=== PATIENT | male | born 1950 | race Caucasian/White ===

== ENCOUNTER 2021-06-02 16:53 | Emergency (ER) | payer MEDICARE, OTHER, SELFPAY ==
[2021-06-02 16:54] VITALS: BP 136/63; PULSE 72; RESP 16; TEMP 36.3; O2SAT 96; BMI 35.2
--- NOTE | 2021-06-02 17:16 | EKG12_ITS ---
Test Reason : PALPS Blood Pressure : / mmHG Vent. Rate : 077 BPM Atrial Rate : 091 BPM P-R Int : 000 ms QRS Dur : 112 ms QT Int : 378 ms P-R-T Axes : 000 -49 065 degrees QTc Int : 427 ms Atrial fibrillation Left axis deviation Incomplete left bundle branch block Nonspecific ST abnormality Abnormal ECG Confirmed by KERRI HUANG, CRISTAL ([id number]), editor producer LAUREN GARCIA ([id number]) on 06/05/2021 9:55:54 AM Referred By: KATHRIN Confirmed By:ROSE MARY MANNING MD
[2021-06-02 17:32] VITALS: BP 114/74; BP 118/57; BP 125/79; PULSE 68; PULSE 86; PULSE 89
[2021-06-02 17:39] LABS: Absolute Lymphocyte Count 2.62 X10^3/uL (0.83-4.51); Absolute Neutrophil Count 3.1 X10^3/uL (2.0-7.7); Basophil# 0.03 X10^3/uL; Basophil% 0.5 % (0-1); Eosinophil# 0.18 X10^3/uL; Eosinophils% 2.7 % (0-5); Hematocrit 31.3 % (40-54); Hemoglobin 9.2 g/dL (13.0-16.5); Lymphocyte # 2.62 X10^3/ul (0.83-4.51); Lymphocyte % 39.5 % (19-41); Mean Corp Hgb Conc 29.4 g/dL (32-36); Mean Corpuscular Hgb 21.9 pg (27.0-32.0); Mean Corpuscular Volume 74.3 fL (80-94); Mean Platelet Vol. 9.2 fl (6.2-12.0); Monocyte# 0.67 X10^3/uL; Monocyte% 10.1 % (0-10); NRBC Flagged by Analyzer 0 % (0-5); Neutrophil # 3.12 X10^3/uL (2.7-7.7); Neutrophil % 46.9 % (47-70); Platelet Count 427 K/mm3 (150-450); RBC Distribution Width CV 15.7 % (11.6-14.6); RBC Distribution Width SD 41.9 fl (35.1-43.9); Red Blood Count 4.21 M/mm3 (4.6-6.2); White Blood Count 6.6 K/mm3 (4.4-11.0)
--- NOTE | 2021-06-02 17:48 | RAD_ITS ---
INDICATION: cad EXAMINATION/TECHNIQUE: X-RAY - XR Chest 1 View COMPARISON: None. FINDINGS: The lungs are clear. Sternal cerclage wires and vascular clips are present from a prior sternotomy and coronary artery bypass graft procedure (CABG). The heart is enlarged. No pleural effusion or pneumothorax. Degenerative changes of the thoracic spine and shoulders. RAD/Chest 1 View (Portable) IMPRESSION: No acute radiographic abnormalities. Cardiomegaly. Electronically Signed: Silvio Torres MD at 18:28 EDT Tel , Service support ,
[2021-06-02 17:50] LABS: International Normalized Ratio 2.2; Prothrombin Time (Protime)PT. 23.6 SECONDS (11.7-14.9)
[2021-06-02 18:02] LABS: ALB/GLOB Ratio 0.9 RATIO (0.9-2.4); AST(SGOT) 43 U/L (15-37); Alanine Aminotransfer ALT/SGPT 71 U/L (16-61); Albumin, Serum 3.5 g/dL (3.2-5.0); Alkaline Phosphatase 54 U/L (45-117); Anion Gap 11 (5-15); BUN 21 mg/dL (7-18); BUN/Creat Ratio 17.9 RATIO (10-20); Calcium,Total 8.7 mg/dL (8.5-10.1); Chloride 103 mmol/L (98-107); Creatinine, Serum 1.17 mg/dL (0.70-1.30); EST Glomerular Filtration Rate 65 mL/min (>60); Est Glom Filt Rate - Afr Amer 79 mL/min (>60); Estimated Creatinine Clearance 60.66 ml/min; Globulin 3.8 g/dL (2.2-4.2); Glucose 145 mg/dL (74-106); Protein, Total 7.3 g/dL (6.4-8.2); Sodium Level 137 mmol/L (136-145); Troponin-I HS 35.1 pg/mL (3.0-78.5)
[2021-06-02 18:44] LABS: BNP,B-Type NATRIURETIC PEPTIDE 106.6 pg/mL (0-100)
[2021-06-02 19:17] VITALS: BP 115/66; PULSE 62; RESP 16; O2SAT 100
[2021-06-02 20:05] LABS: Bacteria 0 SEEN /hpf (None Seen); Mucous, Urine 0 SEEN /hpf (<or=2+); Red Blood Cells-Urine 0 SEEN /hpf (0-5); Squamous Epithelial Cells - UA 0 SEEN /hpf (0-5)
[2021-06-02 20:09] LABS: Color, Urine Yellow (Yellow); Glucose, Dipstick Normal (Normal); Ketone-Dipstick Negative (Negative); Leukocyte Esterase-Dipstick 25 /ul (Negative); Nitrite-Dipstick Negative (Negative); Occult Blood-Urine Negative /ul (Negative); Protein-Dipstick Negative (Negative); Urine Bilirubin Dipstick Negative (Negative); Urine Clarity Clear (Clear); Urine Urobilinogen Normal (Normal)
[2021-06-02 20:23] LABS: White Blood Cells 0-5 SEEN /hpf (0-5)
[2021-06-02 20:35] VITALS: BP 128/56; PULSE 63; RESP 18; O2SAT 98
--- NOTE | 2021-06-02 21:06 | EDS_ITS ---
HPI History of Present Illness Chief Complaint: Palpitations Informant: patient and spouse/S.O. Narrative Narrative: 70-year-old male presenting to the emergency department stating that he does not feel well. States that he feels out of it. He recently moved into the area from [place]. Unfortunately he had been getting his medical care at [facility]. He notes a history of atrial fibrillation. He takes Toprol Plavix and Coumadin. He is also on lisinopril Imdur and Lasix. He has had open heart surgery. He has had prior coronary stents. He does note a history of congestive heart failure. [facility] Medical History (Updated 06/02/21 @ 21:[address] Evan Deleon, DO) Atrial fibrillation Congestive heart failure (CHF) Hyperlipidemia Hypertension Home Medications clopidogrel 75 mg PO DAILY 06/02/21 [History Last Taken 06/02/21] famotidine 40 mg PO DAILY 06/02/21 [History Last Taken 06/02/21] folic acid 0.8 mg PO BID 06/02/21 [History Last Taken 06/02/21] furosemide [Lasix] 40 mg PO DAILY 06/02/21 [History Last Taken 06/02/21] isosorbide mononitrate [Imdur] 60 mg PO DAILY 06/02/21 [History Last Taken 06/02/21] lisinopril 20 mg PO DAILY 06/02/21 [History Last Taken 06/02/21] metformin 1,000 mg PO BID 06/02/21 [History Last Taken 06/02/21] metoprolol succinate [Toprol XL] 100 mg PO Q12H 06/02/21 [History Last Taken 06/02/21] multivitamin 1 tab PO DAILY 06/02/21 [History Last Taken 06/02/21] nitroglycerin [Nitrostat] 0.4 mg SUBLINGUAL Q5M PRN 06/02/21 [History Last Taken Unknown] potassium chloride [Klor-Con] 20 meq PO DAILY 06/02/21 [History Last Taken 06/02/21] pravastatin 80 mg PO QHS 06/02/21 [History Last Taken 06/01/21] sitagliptin [Januvia] 50 mg PO DAILY 06/02/21 [History Last Taken 06/02/21] warfarin [Coumadin] 6 mg PO SUTUWETHSA 06/02/21 [History Last Taken 06/01/21] warfarin [Coumadin] 7 mg PO MOFR 06/02/21 [History Last Taken 05/29/21] Allergy/AdvReac Type Severity Reaction Status Date / Time amoxicillin Allergy Hives Verified 06/02/21 16:59 atorvastatin Allergy NEEDS Verified 06/02/21 16:59 FOLLOW-UP ceftriaxone Allergy Upset Verified 06/02/21 16:59 Stomach diatrizoate meglumine Allergy Hives Verified 06/02/21 16:59 hydrocodone Allergy Upset Verified 06/02/21 16:59 Stomach Iodinated Contrast Media [CT] Allergy Hives Verified 06/02/21 16:59 iodine Allergy Hives Verified 06/02/21 16:59 rosuvastatin Allergy NEEDS Verified 06/02/21 16:59 FOLLOW-UP Surgical History (Updated 06/02/21 @ 21:[address] Evan Deleon DO) Hx of CABG Stented coronary artery Social History (Updated 06/02/21 @ 21:[address] Evan Deleon DO) Smoking Status: Former smoker substance use type: does not use ROS ROS ED Constitutional Constitutional ED: Reports other Details: Fatigue ; Denies chills or weight loss Eyes Eyes: Denies change in vision or diplopia ENT ENT ED: Denies ear pain, rhinorrhea or sore throat Cardiovascular Cardiovascular: Reports palpitations; Denies chest pain, orthopnea or racing heartbeat Respiratory/Chest Respiratory/Chest: Denies cough, dyspnea or orthopnea Gastrointestinal Gastrointestinal: Denies abdominal pain, diarrhea, nausea or vomiting Genitourinary Genitourinary ED: Denies dysuria, hematuria or urinary frequency Musculoskeletal Musculoskeletal: Denies arthralgias or myalgias Integumentary Denies abscess or rash Neurologic Neurologic: Denies headache(s) or weakness Psychiatric Psychiatric: Denies anxiety, depression, suicidal ideation or suicidal thoughts Endocrine Endocrinology: Denies polydipsia, polyphagia or polyuria Allergic/Immunologic Allergic/Immunologic ED: Denies mouth swelling, tongue swelling or urticaria EXAM Physical Exam Const Vital Signs: 06/02/21 16:54 06/02/21 17:32 06/02/21 19:17 Temperature 97.3 F L Temperature Source Temporal Pulse Rate 72 62 Pulse Rate [Lying] 68 Pulse Rate [Sitting] 86 Pulse Rate [Standing] 89 Respiratory Rate 16 16 Blood Pressure 136/63 H 115/66 Blood Pressure [Lying] 118/57 L Blood Pressure [Sitting] 125/79 H Blood Pressure [Standing] 114/74 Blood Pressure Mean 87 82 Blood Pressure Mean [Lying] 77 Blood Pressure Mean [Sitting] 94 Blood Pressure Mean [Standing] 87 Pulse Ox 96 100 Oxygen Delivery Method Room Air Room Air 06/02/21 20:35 Temperature Temperature Source Pulse Rate 63 Pulse Rate [Lying] Pulse Rate [Sitting] Pulse Rate [Standing] Respiratory Rate 18 Blood Pressure 128/56 H Blood Pressure [Lying] Blood Pressure [Sitting] Blood Pressure [Standing] Blood Pressure Mean 80 Blood Pressure Mean [Lying] Blood Pressure Mean [Sitting] Blood Pressure Mean [Standing] Pulse Ox 98 Oxygen Delivery Method Positive well nourished and well developed General Appearance ED: well developed HEENT Reports normocephalic, head/scalp atraumatic and moist mucous membranes Eyes PERRL and EOMs intact bilaterally Neck no lymphadenopathy, supple and no JVD Resp normal respiratory effort and clear to auscultation bilaterally Cardio no murmurs Rate: other Other Details: Irregularly irregular rhythm GI normal to inspection, nondistended, normoactive bowel sounds and non-tender Palpation: soft Back/Spine no CVA tenderness and normal ROM Extremity normal to inspection General Extremety ED: Negative for edema General Extremity: Negative for edema Neuro oriented x3 and CN's II-XII intact bilaterally Sensorium / Orientation: alert Motor Exam: strength 5/5 throughout Psych mental status grossly normal Mood & Affect: Negative for depressed or tearful Skin no rashes or lesions noted and no wounds MDM MDM MDM Narrative Medical decision making narrative: Basic blood work showed a hemoglobin 9.2. Unfortunately I do not have old labs to compare to and I cannot get clinic [facility] to provide me records from [facility]. 2 sets of cardiac enzymes negative. Beta natruretic peptide at 106. I interpretation of the chest x-ray is no acute process. Cardiomegaly noted. Patient received a 500 cc fluid bolus and was observed. Repeat examination he tells me that he is no longer having his symptoms and he feels well. At this point he has no evidence of bleeding no black or bloody stools. I think the patient can be discharged home he is looking for new doctors in the area can provide him with some options. Lab Data Attestation: I reviewed the patient's lab results. Labs: Laboratory Results - last 24 hr 06/02/21 06/02/21 06/02/21 17:25 17:25 17:25 WBC 6.6 RBC 4.21 L Hgb 9.2 L Hct 31.3 L MCV 74.3 L MCH 21.9 L MCHC 29.4 L RDW Std Deviation 41.9 RDW Coeff of Otto 15.7 H Plt Count 427 MPV 9.2 Immature Gran % (Auto) 0.300 Neut % (Auto) 46.9 L Lymph % (Auto) 39.5 [place] % (Auto) 10.1 H Eos % (Auto) 2.7 Baso % (Auto) 0.5 Absolute Neuts (auto) 3.1 Absolute Lymphs (auto) 2.62 Nucleated RBC % 0 PT INR Sodium 137 Potassium 4.0 Chloride 103 Carbon Dioxide 23.0 Anion Gap 11 BUN 21 H Creatinine 1.17 Estim Creat Clear Calc 60.66 Est GFR (MDRD) Af Amer 79 Est GFR (MDRD) Non-Af 65 BUN/Creatinine Ratio 17.9 Glucose 145 H Calcium 8.7 Total Bilirubin 0.30 AST 43 H ALT 71 H Alkaline Phosphatase 54 Troponin I High Sens 35.1 B-Natriuretic Peptide 106.6 H Total Protein 7.3 Albumin 3.5 Globulin 3.8 Albumin/Globulin Ratio 0.9 Urine Color Urine Clarity Urine pH Ur Specific [place] Urine Protein Urine Glucose (UA) Urine Ketones Urine Occult Blood Urine Nitrite Urine Bilirubin Urine Urobilinogen Ur Leukocyte Esterase Urine RBC Urine WBC Ur Squamous Epith Cells Urine Bacteria Urine Mucus 06/02/21 06/02/21 06/02/21 17:25 20:00 20:42 WBC RBC Hgb Hct MCV MCH MCHC RDW Std Deviation RDW Coeff of Otto Plt Count MPV Immature Gran % (Auto) Neut % (Auto) Lymph % (Auto) [place] % (Auto) Eos % (Auto) Baso % (Auto) Absolute Neuts (auto) Absolute Lymphs (auto) Nucleated RBC % PT 23.6 H INR 2.2 Sodium Potassium Chloride Carbon Dioxide Anion Gap BUN Creatinine Estim Creat Clear Calc Est GFR (MDRD) Af Amer Est GFR (MDRD) Non-Af BUN/Creatinine Ratio Glucose Calcium Total Bilirubin AST ALT Alkaline Phosphatase Troponin I High Sens 29.8 B-Natriuretic Peptide Total Protein Albumin Globulin Albumin/Globulin Ratio Urine Color Yellow Urine Clarity Clear Urine pH 6.0 Ur Specific [place] 1.020 Urine Protein Negative Urine Glucose (UA) Normal Urine Ketones Negative Urine Occult Blood Negative Urine Nitrite Negative Urine Bilirubin Negative Urine Urobilinogen Normal Ur Leukocyte Esterase 25 H Urine RBC 0 SEEN Urine WBC 0-5 SEEN Ur Squamous Epith Cells 0 SEEN Urine Bacteria 0 SEEN Urine Mucus 0 SEEN Radiography Diagnostic Testing: Radiology Impression Chest X-Ray 06/02/21 17:48 IMPRESSION: No acute radiographic abnormalities. Cardiomegaly. Electronically Signed: Silvio Torres MD at 18:28 EDT Tel , Service support , EKG Initial EKG: Attestation: I personally reviewed and interpreted this EKG as follows: Comments: EKG demonstrates atrial fibrillation at a ventricular rate of 77 bpm. Incomplete left bundle branch block noted. Discharge Plan Triage Chief Complaint: Palpitations ED Provider: Evan Deleon Dx/Rx/DC Orders Clinical Impression: Dizziness, Fatigue, Coronary artery disease, Anemia Instructions: ED Anemia, Type Not Specified (Adult), ED Dizziness, Uncertain Cause Prescriptions: No Action multivitamin Tablet 1 tab PO DAILY RF: 0 furosemide [Lasix] 40 mg Tablet 40 mg PO DAILY RF: 0 lisinopril 20 mg Tablet 20 mg PO DAILY RF: 0 famotidine 40 mg Tablet 40 mg PO DAILY RF: 0 metoprolol succinate [Toprol XL] 100 mg Tablet Extended Release 24 Hr 100 mg PO Q12H RF: 0 clopidogrel 75 mg Tablet 75 mg PO DAILY RF: 0 isosorbide mononitrate [Imdur] 60 mg Tablet Extended Release 24 Hr 60 mg PO DAILY RF: 0 potassium chloride [Klor-Con] 20 mEq Packet 20 meq PO DAILY RF: 0 pravastatin 80 mg Tablet 80 mg PO QHS RF: 0 metformin 1,000 mg Tablet 1,000 mg PO BID RF: 0 warfarin [Coumadin] 2 mg Tablet 7 mg PO MOFR RF: 0 warfarin [Coumadin] 2 mg Tablet 6 mg PO SUTUWETHSA RF: 0 nitroglycerin [Nitrostat] 0.4 mg Tablet, Sublingual 0.4 mg SUBLINGUAL Q5M PRN (Reason: Chest Pain) RF: 0 folic acid 800 mcg Tablet 0.8 mg PO BID RF: 0 Januvia 50 mg Tablet 50 mg PO DAILY RF: 0 Primary Care Provider: Care Physician,No Primary Referrals: Sergei Riddle MD [STAFF PHYSICIAN] - As Needed (For primary care with [facility]) Alicia Allison MD [STAFF PHYSICIAN] - As Needed (For [facility]) Mario Edmond MD [STAFF PHYSICIAN] - As Needed (Dr. Edmond is a local horseradish maker.) Care Physician,No Primary [Primary Care Provider] - Disposition Disposition: Home, Self Care
[2021-06-02 21:10] LABS: Troponin-I HS 29.8 pg/mL (3.0-78.5)
[2021-06-02 21:28] VITALS: BP 114/59; PULSE 66; RESP 12; O2SAT 100
== END 2021-06-02 21:41 | disposition home or self-care (01) ==
PROVIDERS: Emergency Provider Emergency Medicine
DX: R42 Dizziness and giddiness (principal); R53.83 Other fatigue; I25.10 Atherosclerotic heart disease of native coronary artery without angina pectoris; D64.9 Anemia, unspecified; E78.5 Hyperlipidemia, unspecified; I11.0 Hypertensive heart disease with heart failure; I50.9 Heart failure, unspecified; I48.91 Unspecified atrial fibrillation; Z79.01 Long term (current) use of anticoagulants; Z79.84 Long term (current) use of oral hypoglycemic drugs; Z79.899 Other long term (current) drug therapy; Z87.891 Personal history of nicotine dependence; Z95.5 Presence of coronary angioplasty implant and graft
CPT/HCPCS: 71045; 80053; 81001; 83880; 84484; 85025; 85610; 93005; 96360; 96361; 99285; J7040; A4216

== ENCOUNTER 2021-06-19 14:55 | Inpatient (IN) | payer MEDICARE, OTHER, SELFPAY ==
[2021-06-19] VITALS (9 sets, daily range): BP systolic 111–146; BP diastolic 53–71; PULSE 63–94; RESP 15–24; TEMP 36.3–36.7; O2SAT 97–100; BMI 35.2
--- NOTE | 2021-06-19 15:16 | CT_ITS ---
EXAM: CT ABDOMEN AND PELVIS WITHOUT INTRAVENOUS CONTRAST : 1950 CLINICAL INDICATION: flank pain TECHNIQUE: Helically acquired images were obtained of the abdomen and pelvis without intravenous contrast. This CT exam was performed using one or more of the following dose reduction techniques: automated exposure control, adjustment of the mA and/or kV according to patient size, and/or use of iterative reconstruction technique. This report was created using [email or web address] report generation technology. COMPARISON: None. FINDINGS: LOWER THORAX: Unremarkable. Lung bases are clear. No cardiomegaly. No significant pericardial effusion. ABDOMEN: LIVER: Unremarkable. Homogeneous. GALLBLADDER AND BILE DUCTS: Unremarkable. No calcified gallstones. No gallbladder distention or wall edema. No intra- or extrahepatic biliary ductal dilation. PANCREAS: Unremarkable. No focal cystic mass. SPLEEN: Unremarkable. Normal size without focal cystic or solid mass. ADRENALS: Unremarkable. No nodules. KIDNEYS AND URETERS: Unremarkable. Normal renal size and position. No hydronephrosis. STOMACH AND BOWEL: Unremarkable. No stomach or bowel distention. No focal inflammatory change. PELVIS: APPENDIX: No evidence of acute appendicitis. BLADDER: Unremarkable. REPRODUCTIVE: Unremarkable as visualized. No mass. ABDOMEN and PELVIS: INTRAPERITONEAL SPACE: Unremarkable. No ascites or other fluid collection. No free air. BONES/JOINTS: Unremarkable. No suspicious lytic or blastic abnormality. SOFT TISSUES: Unremarkable. No discrete abdominal or pelvic wall hernia. VASCULATURE: Unremarkable. Abdominal aorta is non-dilated. LYMPH NODES: Unremarkable. No enlarged lymph nodes. CT/Abdomen/Pelvis without Cont IMPRESSION: Negative CT of the abdomen and pelvis without intravenous contrast. Individualized dose optimization techniques were used for this CT. at 1652 Reported and signed by: Amado Ren MD Electronically Signed: Amado Ren MD at 16:51 EDT Tel , Service support ,
--- NOTE | 2021-06-19 15:16 | EKG12_ITS ---
Test Reason : DIZZINESS Blood Pressure : / mmHG Vent. Rate : 075 BPM Atrial Rate : 075 BPM P-R Int : 248 ms QRS Dur : 102 ms QT Int : 372 ms P-R-T Axes : 046 -39 041 degrees QTc Int : 415 ms Sinus rhythm with 1st degree A-V block Left axis deviation Poor R wave progression Abnormal ECG Confirmed by SWATI HUANG, FADIA ([id number]), video tape editor LAUREN GARCIA ([id number]) on 06/22/2021 12:47:40 PM Referred By: SHIVANI Confirmed By:FADIA LONGORIA MD
--- NOTE | 2021-06-19 15:19 | EX.ED.DYSGE1 ---
HPI History of Present Illness Chief Complaint: Dizziness Narrative Narrative: Patient presents with 2 to 3-month history of feeling dizzy, he describes this as lightheaded, he has abdominal pain, and decreased p.o. intake, his stool has also been quite erratic recently. No weight loss. No fevers or chills. He did notice some bright red blood per rectum today. No vertigo or neurological symptoms. [facility] Medical History (Updated 06/19/21 @ 18:[address] Mario aYng MD) Atrial fibrillation Congestive heart failure (CHF) Diabetes Hyperlipidemia Hypertension Home Medications clopidogrel 75 mg PO DAILY 06/02/21 [History Last Taken 06/02/21] famotidine 40 mg PO DAILY 06/02/21 [History Last Taken 06/02/21] folic acid 0.8 mg PO BID 06/02/21 [History Last Taken 06/02/21] furosemide [Lasix] 40 mg PO DAILY 06/02/21 [History Last Taken 06/02/21] isosorbide mononitrate [Imdur] 60 mg PO DAILY 06/02/21 [History Last Taken 06/02/21] lisinopril 20 mg PO DAILY 06/02/21 [History Last Taken 06/02/21] metformin 1,000 mg PO BID 06/02/21 [History Last Taken 06/02/21] metoprolol succinate [Toprol XL] 100 mg PO Q12H 06/02/21 [History Last Taken 06/02/21] multivitamin 1 tab PO DAILY 06/02/21 [History Last Taken 06/02/21] nitroglycerin [Nitrostat] 0.4 mg SUBLINGUAL Q5M PRN 06/02/21 [History Last Taken Unknown] potassium chloride [Klor-Con] 20 meq PO DAILY 06/02/21 [History Last Taken 06/02/21] pravastatin 80 mg PO QHS 06/02/21 [History Last Taken 06/01/21] sitagliptin [Januvia] 50 mg PO DAILY 06/02/21 [History Last Taken 06/02/21] warfarin [Coumadin] 6 mg PO SUTUWETHSA 06/02/21 [History Last Taken 06/01/21] warfarin [Coumadin] 7 mg PO MOFR 06/02/21 [History Last Taken 05/29/21] Allergy/AdvReac Type Severity Reaction Status Date / Time amoxicillin Allergy Hives Verified 06/19/21 14:56 atorvastatin Allergy NEEDS Verified 06/19/21 14:56 FOLLOW-UP ceftriaxone Allergy Upset Verified 06/19/21 14:56 Stomach diatrizoate meglumine Allergy Hives Verified 06/19/21 14:56 hydrocodone Allergy Upset Verified 06/19/21 14:56 Stomach Iodinated Contrast Media [CT] Allergy Hives Verified 06/19/21 14:56 iodine Allergy Hives Verified 06/19/21 14:56 rosuvastatin Allergy NEEDS Verified 06/19/21 14:56 FOLLOW-UP Surgical History Hx of CABG Stented coronary artery Social History (Updated 06/02/21 @ 21:[address] Evan Deleon, DO) Smoking Status: Former smoker substance use type: does not use ROS ROS ED ROS Narrative Past medical history: Reviewed, includes history of coronary artery disease, anemia, atrial fibrillation, diabetes, hypercholesterolemia, hypertension. Medications: Reviewed Social history: Noncontributory Review of systems: All systems negative except as indicated General: No fever, there is lightheadedness and generalized weakness Eyes: No visual changes ENT: No upper airway congestion, normal voice Neck: No neck pain Cardiovascular: No chest pain Respiratory: No shortness of breath or cough Gastrointestinal: Some left lower abdominal pain, some rectal bleeding this morning Genitourinary: No dysuria Musculoskeletal: Denies myalgias no difficulty with ambulation Skin: No rash Neurological: No memory loss, confusion or any focal weakness Psych: No recent behavioral changes Hematologic: Prone to easy bleeding secondary to both Coumadin and Plavix EXAM Physical Exam Narrative Exam Narrative: Physical exam General: Patient does not appear in significant distress he is relatively comfortable in the bed. Head: Normocephalic, Atraumatic Eyes: Conjunctiva not pale ENT: Somewhat dry mucous membranes Neck: Supple, Nontender, No lymphadenopathy Cardiovascular: Regular rate, Regular rhythm Respiratory: No distress, CTA bilaterally Abdomen: Soft, slightly distended some pain in the left lower quadrant but otherwise no pain, quite benign exam. A small umbilical hernia is present which is quite easily reduced. Rectal: No external hemorrhoids, no current bleeding. Back: Nontender, Normal Inspection. Negative for: CVA tenderness Extremities: Nontender, No edema Skin: Normal color, No rash Neurological: Alert, Normal Strength, Normal Sensation Psychological: Normal affect Const Vital Signs: 06/19/21 14:56 06/19/21 18:00 Temperature 97.7 F L Temperature Source Oral Pulse Rate 76 69 Respiratory Rate 18 24 H Blood Pressure 120/61 124/53 H Blood Pressure Mean 80 76 Pulse Ox 100 70 Oxygen Delivery Method Room Air Room Air MDM MDM MDM Narrative Medical decision making narrative: Patient presents with lightheadedness. He does have a GI bleed. He has an overall unremarkable work-up other than mild anemia which is only slightly worse than baseline. I give him IV fluids is somewhat improved but I will admit him for further work-up. Lab Data Labs: Laboratory Results - last 24 hr 06/19/21 06/19/21 06/19/21 15:25 15:25 15:25 WBC 8.1 RBC 4.04 L Hgb 8.5 L Hct 30.1 L MCV 74.5 L MCH 21.0 L MCHC 28.2 L RDW Std Deviation 43.5 RDW Coeff of Otto 16.0 H Plt Count 388 MPV 8.8 Immature Gran % (Auto) 0.400 Neut % (Auto) 55.7 Lymph % (Auto) 31.5 [place] % (Auto) 8.9 Eos % (Auto) 3.1 Baso % (Auto) 0.4 Absolute Neuts (auto) 4.5 Absolute Lymphs (auto) 2.54 Nucleated RBC % 0 PT 25.1 H INR 2.4 APTT 34.6 Sodium 135 L Potassium 3.8 Chloride 104 Carbon Dioxide 24.0 Anion Gap 7 BUN 13 Creatinine 1.07 Estim Creat Clear Calc 65.38 Est GFR (MDRD) Af Amer 88 Est GFR (MDRD) Non-Af 72 BUN/Creatinine Ratio 12.1 Glucose 159 H Lactic Acid Calcium 8.4 L Total Bilirubin 0.20 AST 66 H ALT 73 H Alkaline Phosphatase 55 Troponin I High Sens 6.7 Total Protein 7.5 Albumin 3.4 Globulin 4.1 Albumin/Globulin Ratio 0.8 L Lipase 310 06/19/21 15:25 WBC RBC Hgb Hct MCV MCH MCHC RDW Std Deviation RDW Coeff of Otto Plt Count MPV Immature Gran % (Auto) Neut % (Auto) Lymph % (Auto) [place] % (Auto) Eos % (Auto) Baso % (Auto) Absolute Neuts (auto) Absolute Lymphs (auto) Nucleated RBC % PT INR APTT Sodium Potassium Chloride Carbon Dioxide Anion Gap BUN Creatinine Estim Creat Clear Calc Est GFR (MDRD) Af Amer Est GFR (MDRD) Non-Af BUN/Creatinine Ratio Glucose Lactic Acid 3.2 H* Calcium Total Bilirubin AST ALT Alkaline Phosphatase Troponin I High Sens Total Protein Albumin Globulin Albumin/Globulin Ratio Lipase Radiography Diagnostic Testing: Radiology Impression Abdomen/Pelvis CT 06/19/21 15:16 IMPRESSION: Negative CT of the abdomen and pelvis without intravenous contrast. Individualized dose optimization techniques were used for this CT. at 1652 Reported and signed by: Amado Ren MD Electronically Signed: Amado Ren MD at 16:51 EDT Tel , Service support , Discharge Plan Triage Chief Complaint: Dizziness ED Provider: Mario Yang Dx/Rx/DC Orders Clinical Impression: Dizziness, Fatigue, Anemia, Acute GI bleeding Prescriptions: No Action multivitamin Tablet 1 tab PO DAILY RF: 0 furosemide [Lasix] 40 mg Tablet 40 mg PO DAILY RF: 0 lisinopril 20 mg Tablet 20 mg PO DAILY RF: 0 famotidine 40 mg Tablet 40 mg PO DAILY RF: 0 metoprolol succinate [Toprol XL] 100 mg Tablet Extended Release 24 Hr 100 mg PO Q12H RF: 0 clopidogrel 75 mg Tablet 75 mg PO DAILY RF: 0 isosorbide mononitrate [Imdur] 60 mg Tablet Extended Release 24 Hr 60 mg PO DAILY RF: 0 potassium chloride [Klor-Con] 20 mEq Packet 20 meq PO DAILY RF: 0 pravastatin 80 mg Tablet 80 mg PO QHS RF: 0 metformin 1,000 mg Tablet 1,000 mg PO BID RF: 0 warfarin [Coumadin] 2 mg Tablet 7 mg PO MOFR RF: 0 warfarin [Coumadin] 2 mg Tablet 6 mg PO SUTUWETHSA RF: 0 nitroglycerin [Nitrostat] 0.4 mg Tablet, Sublingual 0.4 mg SUBLINGUAL Q5M PRN (Reason: Chest Pain) RF: 0 folic acid 800 mcg Tablet 0.8 mg PO BID RF: 0 Januvia 50 mg Tablet 50 mg PO DAILY RF: 0 Primary Care Provider: Oscar Castro Referrals: Oscar Castro MD [Primary Care Provider] - Disposition Disposition: Acute Care Hospital [facility]
[2021-06-19] MEDS: Ondansetron 4 MG/2 ML Vial IV (15:29)
[2021-06-19] MEDS: Morphine 2 MG/ML Syringe IV (15:29)
[2021-06-19 15:37] LABS: Absolute Lymphocyte Count 2.54 X10^3/uL (0.83-4.51); Absolute Neutrophil Count 4.5 X10^3/uL (2.0-7.7); Basophil# 0.03 X10^3/uL; Basophil% 0.4 % (0-1); Eosinophil# 0.25 X10^3/uL; Eosinophils% 3.1 % (0-5); Hematocrit 30.1 % (40-54); Hemoglobin 8.5 g/dL (13.0-16.5); Lymphocyte # 2.54 X10^3/ul (0.83-4.51); Lymphocyte % 31.5 % (19-41); Mean Corp Hgb Conc 28.2 g/dL (32-36); Mean Corpuscular Volume 74.5 fL (80-94); Mean Platelet Vol. 8.8 fl (6.2-12.0); Monocyte# 0.72 X10^3/uL; Monocyte% 8.9 % (0-10); NRBC Flagged by Analyzer 0 % (0-5); Neutrophil # 4.49 X10^3/uL (2.7-7.7); Neutrophil % 55.7 % (47-70); Platelet Count 388 K/mm3 (150-450); RBC Distribution Width SD 43.5 fl (35.1-43.9); Red Blood Count 4.04 M/mm3 (4.6-6.2); White Blood Count 8.1 K/mm3 (4.4-11.0)
[2021-06-19 15:53] LABS: ALB/GLOB Ratio 0.8 RATIO (0.9-2.4); AST(SGOT) 66 U/L (15-37); Alanine Aminotransfer ALT/SGPT 73 U/L (16-61); Albumin, Serum 3.4 g/dL (3.2-5.0); Alkaline Phosphatase 55 U/L (45-117); Anion Gap 7 (5-15); BUN 13 mg/dL (7-18); BUN/Creat Ratio 12.1 RATIO (10-20); Calcium,Total 8.4 mg/dL (8.5-10.1); Chloride 104 mmol/L (98-107); Creatinine, Serum 1.07 mg/dL (0.70-1.30); EST Glomerular Filtration Rate 72 mL/min (>60); Est Glom Filt Rate - Afr Amer 88 mL/min (>60); Estimated Creatinine Clearance 65.38 ml/min; Globulin 4.1 g/dL (2.2-4.2); Glucose 159 mg/dL (74-106); Lipase 310 U/L (73-393); Potassium 3.8 mmol/L (3.5-5.1); Protein, Total 7.5 g/dL (6.4-8.2); Sodium Level 135 mmol/L (136-145); Troponin-I HS 6.7 pg/mL (3.0-78.5)
[2021-06-19 15:55] LABS: International Normalized Ratio 2.4; Prothrombin Time (Protime)PT. 25.1 SECONDS (11.7-14.9)
[2021-06-19 15:56] LABS: Partial Thromboplast Time 34.6 Seconds (24.1-36.2)
[2021-06-19 16:02] LABS: Lactic Acid 3.2 mmol/L (0.4-1.9)
--- NOTE | 2021-06-19 18:06 | NURSING ---
DR TREVINO IN ER
--- NOTE | 2021-06-19 18:25 | CT_ITS ---
STUDY: CT ABDOMEN AND PELVIS WITHOUT CONTRAST REASON FOR EXAM: Male, 71 years old. Left lower quadrant abd pain -- Left lower quadrant abd pain, Lower GI BLeed RADIATION DOSAGE (If Supplied By Facility): CTDIvol = ( 18.48 ) mGy, DLP = ( 960.33 ) mGycm TECHNIQUE: Transaxial images were obtained from the dome of the diaphragm to the symphysis pubis with oral contrast, and without intravenous contrast. Sagittal and coronal images were reconstructed. Individualized dose optimization techniques were used for this CT. COMPARISON: None. FINDINGS: The visualized lung bases are unremarkable. The visualized portions of the heart are within normal limits. Normal liver. Normal gallbladder and extrahepatic biliary system. Normal spleen. Normal pancreas. Normal bilateral adrenal glands. Normal right kidney. Normal left kidney. Normal visualized stomach. Normal small intestine. There are multiple colonic diverticula consistent with diverticulosis. The appendix is visualized and appears normal. Normal abdominal aorta. There is an IVC filter in place. Normal retroperitoneum. Normal urinary bladder. Normal visualized prostate gland. Bilateral fat-containing inguinal hernias. There are diffuse degenerative changes of the visualized lumbar spine. CT/Abdomen/Pel W ORAL Cont Only IMPRESSION: No acute findings. Chronic diverticulosis without acute diverticulitis. Electronically Signed: Jose Landis DO at 23:31 EDT Tel , Service support ,
--- NOTE | 2021-06-19 18:37 | PCM.HP.STD ---
HPI - General HPI Narrative BASILIA CONKLIN, is a 71 M with history of multiple cardiac history came to ED with dizziness for about 3 to 4 months sometimes he feels off balance, near fall situation. He denies passing out. He has dyspnea on exertion probably related to coronary artery disease, CHF and other cardiac history. He also complains of claudication pain on climbing stairs but that is chronic for long time. He also noticed bright red blood today but does not know about darker stool as he does not watch his stool. No vertigo, weakness, loss of sensation or other TIA or stroke symptoms. Patient follows [facility] Dr. Van Faye and he has history of quadruple bypass in 2002 and several stents with 1 restenosis of his stent and on Plavix. He also has paroxysmal A. fib on Coumadin, CHF of unclear type and etiology. Patient is new to our system. He denies chest pain/pressure or shortness of breath or palpitation. In the ER, his vitals were normal range. H&H 8.5/30 with normal leukocyte, normal electrolytes. Kidney function normal range. Lipase normal. Lactic acid 3.2, probably related to GI bleed/abdominal pain/dehydration. [facility] Medical History Atrial fibrillation Congestive heart failure (CHF) Diabetes Hyperlipidemia Hypertension Home Medications clopidogrel 75 mg PO DAILY 06/02/21 [History Last Taken 06/19/21] famotidine 40 mg PO DAILY 06/02/21 [History Last Taken 06/19/21] folic acid 0.8 mg PO BID 06/02/21 [History Last Taken 06/19/21] furosemide [Lasix] 40 mg PO DAILY 06/02/21 [History Last Taken 06/19/21] isosorbide mononitrate [Imdur] 60 mg PO DAILY 06/02/21 [History Last Taken 06/19/21] lisinopril 20 mg PO DAILY 06/02/21 [History Last Taken 06/19/21] metformin 1,000 mg PO BID 06/02/21 [History Last Taken 06/19/21] metoprolol succinate [Toprol XL] 100 mg PO Q12H 06/02/21 [History Last Taken 06/19/21] multivitamin 1 tab PO DAILY 06/02/21 [History Last Taken 06/19/21] nitroglycerin [Nitrostat] 0.4 mg SUBLINGUAL Q5M PRN 06/02/21 [History Last Taken Unknown] potassium chloride [Klor-Con] 20 meq PO DAILY 06/02/21 [History Last Taken 06/19/21] pravastatin 80 mg PO QHS 06/02/21 [History Last Taken 06/18/21] sitagliptin [Januvia] 50 mg PO DAILY 06/02/21 [History Last Taken 06/19/21] warfarin [Coumadin] 6 mg PO SUTUWETHSA 06/02/21 [History Last Taken 06/18/21] warfarin [Coumadin] 7 mg PO MOFR 06/02/21 [History Last Taken 06/16/21] cilostazol 50 mg PO BID 06/19/21 [History Last Taken 06/19/21] Allergy/AdvReac Type Severity Reaction Status Date / Time amoxicillin Allergy Hives Verified 06/19/21 14:56 atorvastatin Allergy NEEDS Verified 06/19/21 14:56 FOLLOW-UP ceftriaxone Allergy Upset Verified 06/19/21 14:56 Stomach diatrizoate meglumine Allergy Hives Verified 06/19/21 14:56 hydrocodone Allergy Upset Verified 06/19/21 14:56 Stomach Iodinated Contrast Media [CT] Allergy Hives Verified 06/19/21 14:56 iodine Allergy Hives Verified 06/19/21 14:56 rosuvastatin Allergy NEEDS Verified 06/19/21 14:56 FOLLOW-UP Family History (Updated 06/19/21 @ 18:[address] Austyn Echevarria MD) Father CAD (coronary artery disease) Mother CAD (coronary artery disease) Surgical History Hx of CABG Stented coronary artery Social History Smoking Status: Former smoker substance use type: does not use ROS ROS Narrative Constitutional: Reports fatigue and weakness. Dizziness HEENT: Reports systems reviewed and no addt'l complaints, except as documented Respiratory/Chest: Denies chest pain/pressure. Chronic dyspnea on exertion. Chronic claudication pain history Gastrointestinal: As mentioned in HPI Genitourinary: Denies burning urination or new urinary tract symptoms Musculoskeletal: Reports joint pain and limited range of motion Neurologic: Denies seizure-like activity skin: Grayish discoloration of lower legs sensitive of varicose vein/venous hypertension Endocrinology: Reports systems reviewed and no addt'l complaints, except as documented Hematologic/Lymphatic: Reports systems reviewed and no addt'l complaints, except as documented Rest 12 ROS are negative except as mentioned in HPI Vital Signs Vital Signs Vital Signs: 06/19/21 14:56 06/19/21 18:00 06/19/21 18:30 Temperature 97.7 F L Temperature Source Oral Pulse Rate 76 69 69 Respiratory Rate 18 24 H 15 Blood Pressure 120/61 124/53 H 125/62 H Blood Pressure Mean 80 76 83 Pulse Ox 100 70 100 Oxygen Delivery Method Room Air Room Air Room Air Weight Weight: 245 lb Body Mass Index (BMI) 35.2 Physical Exam Narrative General: Alert, Oriented x3, Cooperative HEENT: Atraumatic, PERRLA, EOMI, Normocephalic Oral: No Gingival or Mucosal Lesions/ Ulcerations Neck: Supple, No JVD, Negative Carotid Bruits Lungs: Air entry equal in bilateral lung bases. No crepitation/rhonchi Cardiovascular: Regular rate, Regular Rhythm, Normal S1, Normal S2, holosystolic murmur grade 3/6 over cardiac apex Abdomen: Soft, tenderness over left lower quadrant. No rebound or guarding. No palpable mass. Bowel Sounds Present, Non-Distended : No renal angle tenderness. No suprapubic tenderness. Extremities: No edema, Capillary Refill Less than 3 Seconds Skin: No rashes, No breakdown Musculoskeletal: No Tenderness to Palpation of Joints or Extremities Neurological: Cranial nerves II-XII grossly intact, Deep Tendon Reflexes 2+/4 and Symmetrical, Neuro grossly intact Psych/Mental Status: Normal Affect, Appropriate. Results Lab / Micro Data Result Diagrams: 06/19/21 15:25 06/19/21 15:25 Labs: Laboratory Results - last 24 hr 06/19/21 15:25: WBC 8.1, RBC 4.04 L, Hgb 8.5 L, Hct 30.1 L, MCV 74.5 L, MCH 21.0 L, MCHC 28.2 L, RDW Std Deviation 43.5, RDW Coeff of Otto 16.0 H, Plt Count 388, MPV 8.8, Immature Gran % (Auto) 0.400, Neut % (Auto) 55.7, Lymph % (Auto) 31.5, [place] % (Auto) 8.9, Eos % (Auto) 3.1, Baso % (Auto) 0.4, Absolute Neuts (auto) 4.5, Absolute Lymphs (auto) 2.54, Nucleated RBC % 0 06/19/21 15:25: PT 25.1 H, INR 2.4, APTT 34.6 06/19/21 15:25: Sodium 135 L, Potassium 3.8, Chloride 104, Carbon Dioxide 24.0, Anion Gap 7, BUN 13, Creatinine 1.07, Estim Creat Clear Calc 65.38, Est GFR (MDRD) Af Amer 88, Est GFR (MDRD) Non-Af 72, BUN/Creatinine Ratio 12.1, Glucose 159 H, Calcium 8.4 L, Total Bilirubin 0.20, AST 66 H, ALT 73 H, Alkaline Phosphatase 55, Troponin I High Sens 6.7, Total Protein 7.5, Albumin 3.4, Globulin 4.1, Albumin/Globulin Ratio 0.8 L, Lipase 310 06/19/21 15:25: Lactic Acid 3.2 H* Radiology Impression Abdomen/Pelvis CT 06/19/21 15:16 IMPRESSION: Negative CT of the abdomen and pelvis without intravenous contrast. Individualized dose optimization techniques were used for this CT. at 1652 Reported and signed by: Amado Ren MD Electronically Signed: Amado Ren MD at 16:51 EDT Tel , Service support , Assessment & Plan Assessment/Plan (1) Dizziness: (2) Acute GI bleeding: (3) Coronary artery disease: QUALIFIERS: Coronary Disease-Associated Artery/Lesion type: bypass graft, autologous artery Associated angina: without angina Qualified Code(s): I25.810 - Atherosclerosis of coronary artery bypass graft(s) without angina pectoris PLAN: This 30-year-old, gentleman coming to ER with dizziness and lower GI bleed. 1. Dizziness, near syncope probably due to lower GI bleed/dehydration: Patient is being admitted in PCU on telemetry. Monitor H&H. IV fluid Ringer lactate dehydration. Currently, hemodynamically stable but if blood pressure drops will need bolus. IV Protonix every [address] abdomen with only oral contrast ordered as patient has iodine contrast allergy. Surgery consult and discussed with Dr. Brito. Monitor H&H every 6 hourly. Lactic acidosis probably due to GI bleed/abdominal pain. There is less suspicion of sepsis as patient does not have fever, or other SIRS criteria 2. Acute anemia probably from GI blood loss: Patient last hemoglobin was 9.2 in May 1621 currently 8.5. Rest as mentioned above. 3. Coronary artery disease status post quadruple bypass, paroxysmal A. fib, CHF unclear class, type and etiology probably ischemic, possible PAD: Hold Coumadin and Plavix. Hold antihypertensive medications as patient's blood pressure might drop. Continue statin and metoprolol with holding parameter. 4. Diabetes mellitus type 2: Accu-Chek insulin coverage blood sliding scale 5. Dyslipidemia and hypertension: Admission level VTE prophylaxis: Moderate risk. Bilateral SCDs. Pharmacological prophylaxis continue in context of active GI bleed. Living will/advanced directive/end of life care: Patient does have living will or advanced directive. After discussion of benefits/risks procedures involved with full code, DNR CC arrest and DNR CC, the patient and his opted for DNR-CC Arrest with no intubation Patient does not want artificial life support including intubation, tube feed, ventilator and/chest compression, central venous catheter, vasopressor and DC shock if needed Total time spent in [id number] encounter in discussion of advanced directive 16 minutes. Charges/Coding Visit Charges Inpatient E&M: 24182 Init Hosp L3 Procedures Hospitalists Procedures: 51011 Advncd Care Plan 30 Min
[2021-06-19 18:51] LABS: Magnesium 1.8 mg/dL (1.6-2.6)
[2021-06-19 19:32] LABS: Reflex Lactate? Y
[2021-06-19 20:07] LABS: Hemoglobin 8.8 g/dL (13.0-16.5)
[2021-06-19] MEDS: 0.9% Saline Lock 10 ML Syringe IV (20:24)
[2021-06-19] MEDS: Lactated Ringers 1,000 ML 100 ML IV (20:24)
[2021-06-19 20:50] LABS: Lactic Acid 3.2 mmol/L (0.4-1.9)
[2021-06-19] MEDS: Metoprolol(XL)Succ 100 MG Tablet PO (21:50)
[2021-06-19] MEDS: Pravastatin 80 MG Tablet PO (21:50)
[2021-06-20] VITALS (12 sets, daily range): BP systolic 117–144; BP diastolic 63–69; PULSE 60–89; RESP 16–18; TEMP 36.2–36.7; O2SAT 97–100
[2021-06-20] MEDS: Morphine 2 MG/ML Syringe IV (00:21)
[2021-06-20 02:57] LABS: Hematocrit 27.1 % (40-54); Hemoglobin 7.9 g/dL (13.0-16.5)
--- NOTE | 2021-06-20 05:55 | ECHOCS_ITS ---
Reason For Study: DIZZINESS Procedure This was a 2D Doppler, Color Flow transthoracic echocardiogram. The study was technically difficult. Due to body habitus. Contrast injection was performed. Exam performed portable in patient room. Left Ventricle Normal LV size. Left ventricular systolic function is normal. The estimated ejection fraction is 65 %. Transmitral diastolic flow velocities suggest moderate (stage 2) diastolic dysfunction (pseudonormal pattern). No regional wall motion abnormalities noted. Right Ventricle Normal RV size. Normal systolic function. Atria The left atrium is mildly enlarged. Normal right atrium. No doppler evidence for ASD. Mitral Valve There is mild mitral annular calcification. Extension of the mitral annular calcification onto the posterior mitral valve leaflet. Trivial mitral valve insufficiency. Tricuspid Valve Normal tricuspid valve. Mild tricuspid valve insufficiency. Unable to estimate RV systolic pressure/pulmonary artery pressure due to technically difficult study. Aortic Valve Trisinus/trileaflet aortic valve. Mild focal aortic valve calcification. Pulmonic Valve The pulmonic valve is not well visualized. Great Vessels Normal sized aortic root. Pericardium/Pleural No pericardial effusion. Epicardial fat. Medication Diluted definity 4.0ml given slow IV push to enhance endocardial definition. MMode/2D Measurements & Calculations LVIDd: 5.2 cm IVSd: 1.2 cm Ao root diam: 2.7 cm LVIDs: 3.5 cm LVPWd: 1.2 cm RVDd: 3.3 cm FS: 31.8 % LAV(MOD-sp2): 65.5 ml LA dimension(2D): 4.4 cm Time Measurements MV dec time: 0.22 sec Doppler Measurements & Calculations MV E max ousmane: 105.8 cm/sec Lat Peak E' Ousmane: 9.3 cm/sec Med Peak E' Ousmane: 5.5 cm/sec MV A max ousmane: 101.0 cm/sec E/E' lat: 11.4 E/E' med: 19.3 MV E/A: 1.0 Ao V2 max: 107.2 cm/sec LV V1 max: 79.7 cm/sec PA V2 max: 125.1 cm/sec Ao max P.6 mmHg LV V1 max P.5 mmHg ECHO/Echo Complete W/ Contrast Interpretation Summary The study was technically difficult. Contrast injection was performed. Left ventricular systolic function is normal. The estimated ejection fraction is 65 %. There is mild mitral annular calcification. Extension of the mitral annular calcification onto the posterior mitral valve l eaflet. Trivial mitral valve insufficiency. Mild tricuspid valve insufficiency. Mild focal aortic valve calcification. Epicardial fat. Unable to estimate RV systolic pressure/pulmonary artery pressure due to techni heydi difficult study. Transmitral diastolic flow velocities suggest diastolic dysfunction (pseudonorm al pattern). Ordering Physician: Austyn Echevarria Referring Physician: Oscar Castro Performed By: Melissa Barrera RDCS, RVT
[2021-06-20] MEDS: 0.9% Saline Lock 10 ML Syringe IV ×4 (06:33→21:54)
[2021-06-20 07:10] LABS: Absolute Lymphocyte Count 2.26 X10^3/uL (0.83-4.51); Absolute Neutrophil Count 2.1 X10^3/uL (2.0-7.7); Basophil# 0.03 X10^3/uL; Basophil% 0.6 % (0-1); Eosinophil# 0.25 X10^3/uL; Eosinophils% 4.8 % (0-5); Hematocrit 27.5 % (40-54); Hemoglobin 7.8 g/dL (13.0-16.5); Lymphocyte # 2.26 X10^3/ul (0.83-4.51); Lymphocyte % 43.5 % (19-41); Mean Corp Hgb Conc 28.4 g/dL (32-36); Mean Corpuscular Hgb 20.9 pg (27.0-32.0); Mean Corpuscular Volume 73.7 fL (80-94); Mean Platelet Vol. 9.2 fl (6.2-12.0); Monocyte# 0.53 X10^3/uL; Monocyte% 10.2 % (0-10); NRBC Flagged by Analyzer 0 % (0-5); Neutrophil # 2.12 X10^3/uL (2.7-7.7); Neutrophil % 40.7 % (47-70); Platelet Count 330 K/mm3 (150-450); RBC Distribution Width SD 42.6 fl (35.1-43.9); Red Blood Count 3.73 M/mm3 (4.6-6.2); White Blood Count 5.2 K/mm3 (4.4-11.0)
[2021-06-20 07:32] LABS: Anion Gap 6 (5-15); BUN 10 mg/dL (7-18); Chloride 105 mmol/L (98-107); Creatinine, Serum 0.91 mg/dL (0.70-1.30); EST Glomerular Filtration Rate 87 mL/min (>60); Est Glom Filt Rate - Afr Amer 105 mL/min (>60); Estimated Creatinine Clearance 76.88 ml/min; Glucose 127 mg/dL (74-106); Potassium 3.7 mmol/L (3.5-5.1); Sodium Level 136 mmol/L (136-145)
--- NOTE | 2021-06-20 08:07 | CON.PCM.SX_ITS ---
Assessment & Plan Assessment/Plan (1) Acute GI bleeding: (2) Anemia: (3) Hemorrhoids, internal: (4) Coronary artery disease: QUALIFIERS: Associated angina: without angina Coronary Disease- Associated Artery/Lesion type: bypass graft, autologous artery Qualified Code(s): I25.810 - Atherosclerosis of coronary artery bypass graft(s) without angina pectoris PLAN: Patient's INR is currently 2 as Coumadin is being held. Plavix is being continued due to his cardiac risk factors. Echo is pending for this morning. On rectal exam patient is very tender around the anus unable to complete LUIS due to discomfort unsure if this is due to internal hemorrhoids unable to see any obvious fissure. Discussed with patient would plan to prep today for colonoscopy for tomorrow along with the echo is okay. Is agreeable with plan. Okay for clears today I have discussed the above with the patient. I have offered the patient colonoscopy for evaluation. Discussed with patient that his INR was still higher at time of colonoscopy repeat colonoscopy to remove any small polyps in the near future once his INR is less than 1.4. I have explained the risks/benefits of the procedure and described the pr ocedure. I have discussed the risks with the patient, including but not limited to: infection, bleeding, perforation of the GI tract requiring emergency surgery, inability to complete the procedure, injury to any internal organs, complications of anesthesia, etc. - the patient understands and agrees to proceed. I have answered all the patient's questions to the patient's satisfaction and the patient has no further questions. Kimmy Brito M.D. Pager: [phone] [facility] [address] [place] [address], [facility], [address] [place] [address] Office: [phone] HPI Consult Data Date of Consult: 06/21/21 HPI Narrative HPI Narrative: BASILIA CONKLIN, is a 71 M who presents to the ER yesterday due to hematochezia. Patient states he has had 3-4 episodes yesterday did have stool with that the last one had mostly blood. Patient states it was bright red. Patient denies ever having previous blood in stool. Patient is not sure if he has any hemorrhoids. Patient's last colonoscopy was about 10 years ago at [facility] had a couple polyps per patient. Patient is currently on Coumadin due to history of blood clots as well as Plavix due to multiple heart stents last one was last year. Patient does admit to some lower quadrant abdominal pain with this which also started yesterday. Patient states for last couple months he has not really had much of an appetite but denies any abdominal pain with this. Previously to coming in patient was having bowel movements daily denies any constipation or diarrhea prior to the hematochezia. Patient CT abdomen pelvis without contrast can also one with p.o. contrast neither 1 showed anything acute no evidence of diverticulitis only diverticulosis. Patient's white blood cell count is within normal limits. Patient's hemoglobin this morning is 7.8, was 8.5 on admit. Patient has not had any further bowel movements since he has been in hospital. Patient does admit to pain with bowel movements and at the perirectal area. [facility] Medical History (Updated 06/20/21 @ 08:[address] Kimmy Brito MD) Atrial fibrillation Blood disorder Congestive heart failure (CHF) Diabetes Hyperlipidemia Hypertension Sleep apnea Home Medications clopidogrel 75 mg PO DAILY 06/02/21 [History Last Taken 06/19/21] famotidine 40 mg PO DAILY 06/02/21 [History Last Taken 06/19/21] folic acid 0.8 mg PO BID 06/02/21 [History Last Taken 06/19/21] furosemide [Lasix] 40 mg PO DAILY 06/02/21 [History Last Taken 06/19/21] isosorbide mononitrate [Imdur] 60 mg PO DAILY 06/02/21 [History Last Taken 06/19/21] lisinopril 20 mg PO DAILY 06/02/21 [History Last Taken 06/19/21] metformin 1,000 mg PO BID 06/02/21 [History Last Taken 06/19/21] metoprolol succinate [Toprol XL] 100 mg PO Q12H 06/02/21 [History Last Taken 06/19/21] multivitamin 1 tab PO DAILY 06/02/21 [History Last Taken 06/19/21] nitroglycerin [Nitrostat] 0.4 mg SUBLINGUAL Q5M PRN 06/02/21 [History Last Taken Unknown] potassium chloride [Klor-Con] 20 meq PO DAILY 06/02/21 [History Last Taken 01/08] pravastatin 80 mg PO QHS 06/02/21 [History Last Taken 06/18/21] sitagliptin [Januvia] 50 mg PO DAILY 06/02/21 [History Last Taken 06/19/21] warfarin [Coumadin] 6 mg PO SUTUWETHSA 06/02/21 [History Last Taken 06/18/21] warfarin [Coumadin] 7 mg PO MOFR 06/02/21 [History Last Taken 06/16/21] cilostazol 50 mg PO BID 06/19/21 [History Last Taken 06/19/21] Allergy/AdvReac Type Severity Reaction Status Date / Time amoxicillin Allergy Hives Verified 06/19/21 14:56 atorvastatin Allergy NEEDS Verified 06/19/21 14:56 FOLLOW-UP ceftriaxone Allergy Upset Verified 06/19/21 14:56 Stomach diatrizoate meglumine Allergy Hives Verified 06/19/21 14:56 hydrocodone Allergy Upset Verified 06/19/21 14:56 Stomach Iodinated Contrast Media [CT] Allergy Hives Verified 06/19/21 14:56 iodine Allergy Hives Verified 06/19/21 14:56 rosuvastatin Allergy NEEDS Verified 06/19/21 14:56 FOLLOW-UP Family History (Updated 06/19/21 @ 18:[address] Austyn Echevarria MD) Father CAD (coronary artery disease) Mother CAD (coronary artery disease) Surgical History Hx of CABG Stented coronary artery Social History Smoking Status: Former smoker substance use type: does not use ROS Constitutional Constitutional: Reports fatigue and poor appetite ENT HEENT: Denies dizziness Cardiovascular Cardiovascular: Denies chest pain Respiratory/Chest Respiratory/Chest: Denies shortness of breath at rest Gastrointestinal Gastrointestinal: Reports hematochezia and rectal bleeding; Denies abdominal pain, diarrhea, heartburn, hematemesis or melena Genitourinary Genitourinary: Denies burning urination Musculoskeletal Musculoskeletal: Denies joint pain Integumentary Integumentary: Denies rash Neurologic Neurologic: Denies focal weakness Endocrine Endocrinology: Denies palpitations Hematologic/Lymphatic Hematologic/Lymphatic: Reports anemia and other Details: Patient on Coumadin and Plavix Physical Exam Const alert, oriented x3 and no apparent distress HEENT normocephalic and head/scalp atraumatic Resp normal respiratory effort Cardio regular rate GI soft to palpation; Negative for non-distended GI Narrative: Minimally tender left lower quadrant/left flank, no peritoneal signs Palpation: Negative for guarding Rectal Exam: other Extremity no clubbing, cyanosis or edema Neuro CN's II-XII intact bilaterally Psych mental status grossly normal Lab / Micro Data Result Diagrams: 06/21/21 05:35 06/21/21 05:35 Labs: Laboratory Results - last 24 hr 06/19/21 15:25: WBC 8.1, RBC 4.04 L, Hgb 8.5 L, Hct 30.1 L, MCV 74.5 L, MCH 21.0 L, MCHC 28.2 L, RDW Std Deviation 43.5, RDW Coeff of Otto 16.0 H, Plt Count 388, MPV 8.8, Immature Gran % (Auto) 0.400, Neut % (Auto) 55.7, Lymph % (Auto) 31.5, [place] % (Auto) 8.9, Eos % (Auto) 3.1, Baso % (Auto) 0.4, Absolute Neuts (auto) 4.5, Absolute Lymphs (auto) 2.54, Nucleated RBC % 0 06/19/21 15:25: PT 25.1 H, INR 2.4, APTT 34.6 06/19/21 15:25: Sodium 135 L, Potassium 3.8, Chloride 104, Carbon Dioxide 24.0, Anion Gap 7, BUN 13, Creatinine 1.07, Estim Creat Clear Calc 65.38, Est GFR (MDRD) Af Amer 88, Est GFR (MDRD) Non-Af 72, BUN/Creatinine Ratio 12.1, Glucose 159 H, Calcium 8.4 L, Total Bilirubin 0.20, AST 66 H, ALT 73 H, Alkaline Phosphatase 55, Troponin I High Sens 6.7, Total Protein 7.5, Albumin 3.4, Globul in 4.1, Albumin/Globulin Ratio 0.8 L, Lipase 310 06/19/21 15:25: Lactic Acid 3.2 H* 06/19/21 15:25: Magnesium 1.8 06/19/21 19:46: Lactic Acid 3.2 H* 06/19/21 19:46: Hgb 8.8 L, Hct 31.0 L 06/20/21 02:50: Hgb 7.9 L, Hct 27.1 L 06/20/21 05:55: WBC 5.2, RBC 3.73 L, Hgb 7.8 L, Hct 27.5 L, MCV 73.7 L, MCH 20.9 L, MCHC 28.4 L, RDW Std Deviation 42.6, RDW Coeff of Otto 16.0 H, Plt Count 330, MPV 9.2, Immature Gran % (Auto) 0.200, Neut % (Auto) 40.7 L, Lymph % (Auto) 43.5 H, [place] % (Auto) 10.2 H, Eos % (Auto) 4.8, Baso % (Auto) 0.6, Absolute Neuts (auto) 2.1, Absolute Lymphs (auto) 2.26, Nucleated RBC % 0 06/20/21 05:55: Sodium 136, Potassium 3.7, Chloride 105, Carbon Dioxide 25.0, Anion Gap 6, BUN 10, Creatinine 0.91, Estim Creat Clear Calc 76.88, Est GFR (MDRD) Af Amer 105, Est GFR (MDRD) Non-Af 87, BUN/Creatinine Ratio 11.0, Glucose 127 H, Calcium 8.0 L 06/20/21 05:55: PT 22.0 H, INR 2.0 Radiology Impression Abdomen/Pelvis CT 06/19/21 15:16 IMPRESSION: Negative CT of the abdomen and pelvis without intravenous contrast. Individualized dose optimization techniques were used for this CT. at 1652 Reported and signed by: Amado Ren MD Electronically Signed: Amado Ren MD at 16:51 EDT Tel , Service support , Abdomen CT 06/19/21 18:25 IMPRESSION: No acute findings. Chronic diverticulosis without acute diverticulitis. Electronically Signed: Jose Landis DO at 23:31 EDT Tel , Service support , Procedure Criteria Type of Procedure Procedure Type: Elective Elective Risks - COVID COVID Risk Discussion: The surgeon/proceduralist and patient have discussed in detail the risk of exposure to and/or potential harm posed by the COVID-19 virus with having a surgery/procedure at this time versus the risk of delaying the surgery/procedure. It is not possible to know either the risk of delaying the surgery or procedure or chance of getting an infection with perfect accuracy, but a joint decision was made between the patient and the surgeon/proceduralist to proceed at this time with the scheduled surgery/procedure as indicated on the consent form. Charges/Coding Visit Charges Inpatient E&M: 45919 Init Hosp L3
[2021-06-20] MEDS: Metoprolol(XL)Succ 100 MG Tablet PO ×2 (09:04→21:17)
--- NOTE | 2021-06-20 14:10 | PN.HOSP_ITS ---
Subjective Subjective Patient's blood pressure and heart rate are in acceptable range. Mild drop in H&H. As per patient's patient baseline hemoglobin in December 2020 was 12 g%. Patient has history of 1 PRBC transfusion during CABG in the past. No reaction. No abdominal pain Discussed with the surgeon. Patient has perirectal pain during defecation seems chronic. Objective Data Objective Data Vital Signs: Vital Signs Temp Pulse Resp BP Pulse Ox 97.2 F L 60 18 139/69 H 100 06/20/21 09:00 06/20/21 12:00 06/20/21 09:00 06/20/21 09:00 06/20/21 09:00 Oxygen Delivery Method Room Air Weight: 245 lb 5.992 oz Body Mass Index (BMI) 35.2 Intake & Output: Intake and Output for Last 24 Hours 06/18/21 06/19/21 06/20/21 23:59 23:59 23:59 Intake Total 1018.33 / 1018.33 751.67 / 751.67 Balance 1018.33 / 1018.33 751.67 / 751.67 Lab / Micro Data Result Diagrams: 06/20/21 05:55 06/20/21 05:55 Labs: Laboratory Results - last 24 hr 06/19/21 15:25: WBC 8.1, RBC 4.04 L, Hgb 8.5 L, Hct 30.1 L, MCV 74.5 L, MCH 21.0 L, MCHC 28.2 L, RDW Std Deviation 43.5, RDW Coeff of Otto 16.0 H, Plt Count 388, MPV 8.8, Immature Gran % (Auto) 0.400, Neut % (Auto) 55.7, Lymph % (Auto) 31.5, [place] % (Auto) 8.9, Eos % (Auto) 3.1, Baso % (Auto) 0.4, Absolute Neuts (auto) 4.5, Absolute Lymphs (auto) 2.54, Nucleated RBC % 0 06/19/21 15:25: PT 25.1 H, INR 2.4, APTT 34.6 06/19/21 15:25: Sodium 135 L, Potassium 3.8, Chloride 104, Carbon Dioxide 24.0, Anion Gap 7, BUN 13, Creatinine 1.07, Estim Creat Clear Calc 65.38, Est GFR (MDRD) Af Amer 88, Est GFR (MDRD) Non-Af 72, BUN/Creatinine Ratio 12.1, Glucose 159 H, Calcium 8.4 L, Total Bilirubin 0.20, AST 66 H, ALT 73 H, Alkaline Phosphatase 55, Troponin I High Sens 6.7, Total Protein 7.5, Albumin 3.4, Globulin 4.1, Albumin/Globulin Ratio 0.8 L, Lipase 310 06/19/21 15:25: Lactic Acid 3.2 H* 06/19/21 15:25: Magnesium 1.8 06/19/21 19:46: Lactic Acid 3.2 H* 06/19/21 19:46: Hgb 8.8 L, Hct 31.0 L 06/20/21 02:50: Hgb 7.9 L, Hct 27.1 L 06/20/21 05:55: WBC 5.2, RBC 3.73 L, Hgb 7.8 L, Hct 27.5 L, MCV 73.7 L, MCH 20.9 L, MCHC 28.4 L, RDW Std Deviation 42.6, RDW Coeff of Otto 16.0 H, Plt Count 330, MPV 9.2, Immature Gran % (Auto) 0.200, Neut % (Auto) 40.7 L, Lymph % (Auto) 43.5 H, [place] % (Auto) 10.2 H, Eos % (Auto) 4.8, Baso % (Auto) 0.6, Absolute Neuts (auto) 2.1, Absolute Lymphs (auto) 2.26, Nucleated RBC % 0 06/20/21 05:55: Sodium 136, Potassium 3.7, Chloride 105, Carbon Dioxide 25.0, Anion Gap 6, BUN 10, Creatinine 0.91, Estim Creat Clear Calc 76.88, Est GFR (MDRD) Af Amer 105, Est GFR (MDRD) Non-Af 87, BUN/Creatinine Ratio 11.0, Glucose 127 H, Calcium 8.0 L 06/20/21 05:55: PT 22.0 H, INR 2.0 Radiography Diagnostic Testing: Radiology Impression Abdomen/Pelvis CT 06/19/21 15:16 IMPRESSION: Negative CT of the abdomen and pelvis without intravenous contrast. Individualized dose optimization techniques were used for this CT. Abdomen CT 06/19/21 18:25 IMPRESSION: No acute findings. Chronic diverticulosis without acute diverticulitis. Physical Exam Narrative General: Alert, Oriented x3, Cooperative HEENT: Atraumatic, PERRLA, EOMI, Normocephalic Oral: No Gingival or Mucosal Lesions/ Ulcerations Neck: Supple, No JVD, Negative Carotid Bruits Lungs: Air entry equal in bilateral lung bases. No crepitation/rhonchi Cardiovascular: Sinus rhythm on monitor. Normal S1S2, holosystolic murmur grade 3/6 over cardiac apex Abdomen: Soft, no tenderness or rebound tenderness, distention, guarding rigidity. Bowel Sounds Present : No renal angle tenderness. No suprapubic tenderness. Extremities: No edema, Capillary Refill Less than 3 Seconds Skin: No rashes, No breakdown Musculoskeletal: No Tenderness to Palpation of Joints or Extremities Neurological: Cranial nerves II-XII grossly intact, DTR 2+/4 and Symmetrical, Neuro grossly intact Psych/Mental Status: Normal Affect, Appropriate. Assessment & Plan Assessment/Plan (1) Dizziness: (2) Acute GI bleeding: (3) Coronary artery disease: QUALIFIERS: Coronary Disease-Associated Artery/Lesion type: bypass graft, autologous artery Associated angina: without angina Qualified Code(s): I25.810 - Atherosclerosis of coronary artery bypass graft(s) without angina pectoris PLAN: This 30-year-old, gentleman coming to ER with dizziness and lower GI bleed. 1. Dizziness, near syncope probably due to lower GI bleed/dehydration: Patient is being admitted in PCU on telemetry. Monitor H&H. IV fluid Ringer lactate dehydration. Currently, hemodynamically stable but if blood pressure drops will need bolus. IV Protonix every [address] abdomen with only oral contrast ordered as patient has iodine contrast allergy. Surgery consult and discussed with Dr. Brito. Monitor H&H every 6 hourly. Lactic acidosis probably due to GI bleed/abdominal pain. There is less suspicion of sepsis as patient does not have fever, or other SIRS criteria 06/20: Repeat lactic acid 3.[address] abdomen does not show any focal area of sepsis. CT abdomen shows diverticulosis but not diverticulitis. Plan for colonoscopy tomorrow a.m. Concern of internal hemorrhoids/fissure as there was tenderness noticed by surgeon during attempt for rectal exam. 2. Acute anemia probably from GI blood loss: Patient last hemoglobin was 9.2 in May 1621 currently 8.5. 06/20: Baseline hemoglobin in December was 12. Most recent 7.8 g%. 200 mg of IV iron sucrose ordered. Repeat H&H in evening and if less than 7.5, will transfuse 1 unit of RBC 3. Coronary artery disease status post quadruple bypass, paroxysmal A. fib, CHF unclear class, type and etiology probably ischemic, possible PAD: Hold Coumadin and Plavix. Hold antihypertensive medications as patient's blood pressure might drop. Continue statin and metoprolol with holding parameter. 06/20: Follow-up 2D echo 4. Diabetes mellitus type 2: Accu-Chek insulin coverage blood sliding scale 5. Dyslipidemia and hypertension: Admission level VTE prophylaxis: Moderate risk. Bilateral SCDs. Pharmacological prophylaxis continue in context of active GI bleed. Total time of the visit including total time spent in counseling or coordination of care, (more than 50% of the total time, spent in obtaining medical information from nurses and other ancillary care providers,explaining to the patient about labs, imaging, diagnosis and management), discussion with planning consultant, review of labs and imaging is 30 minutes. Living will/advanced directive/end of life care: DNRCC arrest with no intubation Charges/Coding Visit Charges Inpatient E&M: 81976 Subs Hosp L3
--- NOTE | 2021-06-20 14:20 | CASEMGMT ---
AIDE HARRIS assessment: Face to Face with patient for initial transition planning/care coordination assessment. AIDE HARRIS introduced self and role at [facility], pt voices understanding and consents to assessment. Pt is sitting up in bed in no distres on room air. Pt is A/Ox4 and answers all questions appropriately. Care providers, pharmacy, and demographics verified. Presentation: Pt c/o dizziness for months, red blood in stool, abd pain Admitting dx: Dizziness w/ GI bleed PCP: Gloria Specialists: Selina Faye cardio Preferred [facility]acy: [facility] Insurance: MCR A/B, [employer] Prescription Benefit: [employer] Living Will/HPOA: Pt states has LW/HPOA and is aware that they are not on file at [facility]. Pt states his , Nava Cochran, is HPOA. LNOK: Nava Cochran, Living Arrangements: Pt states lives with in apt with no steps and states no concerns at home. Pt states in independent with ADL's. Transportation: Pt states drives self and states no transportation concerns. DME/HHC: Pt states has the following DME: cane, walker, grab bars, shower chair, and cpap thru [facility] in [place]. Pt states has had HHC in the past s/p knee surgery and states no hx of SNF. Pt states no concerns with going home at time of discharge. Pt is retired. Pt states does not smoke cigarettes or drink ETOH. Pt states no further concerns/needs. CM to follow for any further discharge planning/needs. Advised pt to ask for CM if any further questions/concerns/needs arise, voices understanding. Pt Goal: Home Plan[place] AIDE HARRIS
[2021-06-20] MEDS: Bisacodyl 5 MG Tablet 20 MG PO (15:06)
[2021-06-20 16:22] LABS: Hematocrit 29.2 % (40-54); Hemoglobin 8.4 g/dL (13.0-16.5)
--- NOTE | 2021-06-20 16:54 | CHAPLAIN ---
Type of Pastoral Visit _x__ Initial Visit ___ Follow-up Visit ___ On-call Visit ___ General Patient Visit ___ Spiritual Assessment ___ Family Conference ___ Bereavement ___ Rapid Response ___ Code Blue ___ Other (describe below) Pastoral Care Referral From _x__ Patient ___ Family ___ Nurse ___ Physician ___ Bread Oven Operator ___ Rewind Operator ___ Other (describe below) Sacrament/Intervention _x__ Active listening ___ Anointing ___ Roman Catholic ___ Bereavement ___ Communion ___ [place]a exploration ___ ___ Life review _x__ Prayer ___ Reconciliation ___ Sacrament of Sick ___ Supportive presence ___ Wedding ___ Other (describe below) Pastoral Comments
[2021-06-20] MEDS: Polyethylene Glycol 3350 BOWEL PREP PO (17:09)
[2021-06-20] MEDS: Pravastatin 80 MG Tablet PO (21:18)
[2021-06-20] MEDS: Ondansetron 4 MG/2 ML Vial IV (21:51)
[2021-06-21] VITALS (13 sets, daily range): BP systolic 92–142; BP diastolic 45–75; PULSE 65–87; RESP 14–18; TEMP 36.2–36.8; O2SAT 95–99; BMI 35.2
--- NOTE | 2021-06-21 05:55 | EKG12_ITS ---
Test Reason : AM EKG Blood Pressure : / mmHG Vent. Rate : 081 BPM Atrial Rate : 081 BPM P-R Int : 300 ms QRS Dur : 098 ms QT Int : 380 ms P-R-T Axes : 057 -39 033 degrees QTc Int : 441 ms Sinus rhythm with 1st degree A-V block Left axis deviation Poor R wave progression Abnormal ECG Confirmed by SWATI HUANG, FADIA ([id number]), graphic editor LAUREN GARCIA ([id number]) on 06/23/2021 9:05:19 AM Referred By: BELINDA Confirmed By:FADIA LONGORIA MD
[2021-06-21 06:01] LABS: Absolute Lymphocyte Count 2.18 X10^3/uL (0.83-4.51); Absolute Neutrophil Count 2.4 X10^3/uL (2.0-7.7); Basophil# 0.02 X10^3/uL; Basophil% 0.4 % (0-1); Eosinophil# 0.23 X10^3/uL; Eosinophils% 4.3 % (0-5); Hematocrit 27.1 % (40-54); Hemoglobin 7.8 g/dL (13.0-16.5); Lymphocyte # 2.18 X10^3/ul (0.83-4.51); Lymphocyte % 40.7 % (19-41); Mean Corp Hgb Conc 28.8 g/dL (32-36); Mean Corpuscular Hgb 21.1 pg (27.0-32.0); Mean Corpuscular Volume 73.2 fL (80-94); Mean Platelet Vol. 9.2 fl (6.2-12.0); Monocyte# 0.56 X10^3/uL; Monocyte% 10.4 % (0-10); NRBC Flagged by Analyzer 0 % (0-5); Neutrophil # 2.36 X10^3/uL (2.7-7.7); Platelet Count 334 K/mm3 (150-450); RBC Distribution Width SD 42.3 fl (35.1-43.9); White Blood Count 5.4 K/mm3 (4.4-11.0)
[2021-06-21 06:16] LABS: International Normalized Ratio 1.8; Prothrombin Time (Protime)PT. 20.5 SECONDS (11.7-14.9)
[2021-06-21 06:35] LABS: Anion Gap 8 (5-15); BUN 7 mg/dL (7-18); BUN/Creat Ratio 7.8 RATIO (10-20); Calcium,Total 7.8 mg/dL (8.5-10.1); Chloride 107 mmol/L (98-107); Creatinine, Serum 0.89 mg/dL (0.70-1.30); EST Glomerular Filtration Rate 89 mL/min (>60); Est Glom Filt Rate - Afr Amer 108 mL/min (>60); Glucose 118 mg/dL (74-106); Potassium 3.6 mmol/L (3.5-5.1); Sodium Level 138 mmol/L (136-145)
[2021-06-21 06:36] LABS: Bedside Glucose 129 mg/dL (70-110)
[2021-06-21 07:43] LABS: Platelet Count 330 K/mm3 (150-450); RET-HE 20.1 pg (30-35); Reticulocyte Count 1.53 % (0.5-1.5)
--- NOTE | 2021-06-21 08:07 | PN.SURG_ITS ---
Subjective Subjective Patient states initially he had some black stool with bowel prep otherwise it was clear bowel prep. Objective Data Objective Data Vital Signs: Vital Signs Temp Pulse Resp BP Pulse Ox 98.2 F 65 15 127/75 H 96 06/21/21 03:10 06/21/21 07:47 06/21/21 03:10 06/21/21 03:10 06/21/21 03:10 Oxygen Delivery Method Room Air Weight: 245 lb 5.992 oz Body Mass Index (BMI) 35.2 Intake & Output: Intake and Output for Last 24 Hours 06/19/21 06/20/21 06/21/21 23:59 23:59 23:59 Intake Total 1018.33 / 1018.33 2424.17 / 2424.17 100 / 100 Balance 1018.33 / 1018.33 2424.17 / 2424.17 100 / 100 Medical Nutrition Assessment Dietitian: Nutrition Therapy Diagnosis Start: 06/20/21 15:01 Freq: Status: Active Protocol: Document 06/20/21 15:08 AG (Rec: 06/20/21 15:08 AG [id number]) Nutrition Malnutrition Evidence of Malnutrition Exists No Intake Problem Inadequate Oral Intake Etiology r/t GI dysfunction Signs/Symptoms as evidenced by estimated PO intake meeting <50% of estimated nutritional needs x 1 day Status Active Problem Recommendation Dietitian Recommendations/Changes Advance diet as tolerated to cardiac when medically indicated. Lab / Micro Data Result Diagrams: 06/21/21 05:35 06/21/21 05:35 Labs: Laboratory Results - last 24 hr 06/20/21 16:07: Hgb 8.4 L, Hct 29.2 L 06/21/21 05:35: PT 20.5 H, INR 1.8 06/21/21 05:35: WBC 5.4, RBC 3.70 L, Hgb 7.8 L, Hct 27.1 L, MCV 73.2 L, MCH 21.1 L, MCHC 28.8 L, RDW Std Deviation 42.3, RDW Coeff of Otto 16.0 H, Plt Count 334, MPV 9.2, Immature Gran % (Auto) 0.200, Neut % (Auto) 44.0 L, Lymph % (Auto) 40.7, [place] % (Auto) 10.4 H, Eos % (Auto) 4.3, Baso % (Auto) 0.4, Absolute Neuts (auto) 2.4, Absolute Lymphs (auto) 2.18, Nucleated RBC % 0 06/21/21 05:35: Sodium 138, Potassium 3.6, Chloride 107, Carbon Dioxide 23.0, Anion Gap 8, BUN 7, Creatinine 0.89, Estim Creat Clear Calc 78.60, Est GFR (MDRD) Af Amer 108, Est GFR (MDRD) Non-Af 89, BUN/Creatinine Ratio 7.8 L, Glucose 118 H, Calcium 7.8 L 06/21/21 05:35: Retic Count 1.53 H, Immature Retic Fraction 26.30 H, Retic Hgb Equivalent 20.1 L 06/21/21 06:31: POC Glucose 129 H Radiography Diagnostic Testing: Radiology Impression Echocardiogram 06/20/21 05:55 Interpretation Summary The study was technically difficult. Contrast injection was performed. Left ventricular systolic function is normal. The estimated ejection fraction is 65 %. There is mild mitral annular calcification. Extension of the mitral annular calcification onto the posterior mitral valve leaflet. Trivial mitral valve insufficiency. Mild tricuspid valve insufficiency. Mild focal aortic valve calcification. Epicardial fat. Unable to estimate RV systolic pressure/pulmonary artery pressure due to technically difficult study. Transmitral diastolic flow velocities suggest diastolic dysfunction (pseudonormal pattern). Ordering Physician: Austyn Echevarria Referring Physician: Osacr Castro Performed By: Melissa Barrera, TEREZA, RVT Physical Exam Resp normal respiratory effort Cardio regular rate GI GI Narrative: Soft, nondistended, nontender, no peritoneal signs Assessment & Plan Assessment/Plan (1) Acute GI bleeding: (2) Anemia: (3) Hemorrhoids, internal: (4) Coronary artery disease: QUALIFIERS: Associated angina: without angina Coronary Disease- Associated Artery/Lesion type: bypass graft, autologous artery Qualified Code(s): I25.810 - Atherosclerosis of coronary artery bypass graft(s) without angina pectoris PLAN: I have discussed the above with the patient. Current INR is 1.8 I have offered the patient colonoscopy for evaluation. Discussed with patient nancy hat his INR was still higher at time of colonoscopy repeat colonoscopy to remove any small polyps in the near future once his INR is less than 1.4. I have explained the risks/benefits of the procedure and described the procedure. I have discussed the risks with the patient, including but not limited to: infection, bleeding, perforation of the GI tract requiring emergency surgery, inability to complete the procedure, injury to any internal organs, complications of anesthesia, etc. - the patient understands and agrees to proceed. Kimmy Brito M.D. Pager: [phone] [facility] [address] [place] [address], [address] [place] [id number] Office: [phone] Charges/Coding Visit Charges Inpatient E&M: 50250 Subs Hosp L2
[2021-06-21 08:13] LABS: Hemoglobin A1c 7.3 % (3.8-5.6)
[2021-06-21] MEDS: 0.9% Saline Lock 10 ML Syringe IV (08:52)
[2021-06-21] MEDS: Sodium Ferric Gluconat 250 MG in 0.9% Normal Saline 250 ML 135 MG IV (09:18)
[2021-06-21 11:05] LABS: Bedside Glucose 129 mg/dL (70-110)
--- NOTE | 2021-06-21 12:06 | PN.HOSP_ITS ---
Subjective Subjective Patient stated he had some black stool yesterday with bowel prep. Denies dizziness, chest pain, shortness of breath. Hemoglobin remained stable, 7.8. It was 8.4 yesterday evening. 200 mg of IV iron ordered. Objective Data Objective Data Vital Signs: Vital Signs Temp Pulse Resp BP Pulse Ox 97.6 F L 70 16 122/71 H 95 06/21/21 10:39 06/21/21 10:39 06/21/21 10:39 06/21/21 10:39 06/21/21 10:39 Oxygen Delivery Method Room Air Weight: 245 lb 5.992 oz Body Mass Index (BMI) 35.2 Intake & Output: Intake and Output for Last 24 Hours 06/19/21 06/20/21 06/21/21 23:59 23:59 23:59 Intake Total 1018.33 / 1018.33 2424.17 / 2424.17 480 / 480 Balance 1018.33 / 1018.33 2424.17 / 2424.17 480 / 480 Medical Nutrition Assessment Dietitian: Nutrition Therapy Diagnosis Start: 06/20/21 15:01 Freq: Status: Active Protocol: Document 06/20/21 15:08 AG (Rec: 06/20/21 15:08 [id number]) Nutrition Malnutrition Evidence of Malnutrition Exists No Intake Problem Inadequate Oral Intake Etiology r/t GI dysfunction Signs/Symptoms as evidenced by estimated PO intake meeting <50% of estimated nutritional needs x 1 day Status Active Problem Recommendation Dietitian Recommendations/Changes Advance diet as tolerated to cardiac when medically indicated. Lab / Micro Data Result Diagrams: 06/21/21 05:35 06/21/21 05:35 Labs: Laboratory Results - last 24 hr 06/20/21 16:07: Hgb 8.4 L, Hct 29.2 L 06/21/21 05:35: PT 20.5 H, INR 1.8 06/21/21 05:35: WBC 5.4, RBC 3.70 L, Hgb 7.8 L, Hct 27.1 L, MCV 73.2 L, MCH 21.1 L, MCHC 28.8 L, RDW Std Deviation 42.3, RDW Coeff of Otto 16.0 H, Plt Count 334, MPV 9.2, Immature Gran % (Auto) 0.200, Neut % (Auto) 44.0 L, Lymph % (Auto) 40.7, [place] % (Auto) 10.4 H, Eos % (Auto) 4.3, Baso % (Auto) 0.4, Absolute Neuts (auto) 2.4, Absolute Lymphs (auto) 2.18, Nucleated RBC % 0 06/21/21 05:35: Sodium 138, Potassium 3.6, Chloride 107, Carbon Dioxide 23.0, Anion Gap 8, BUN 7, Creatinine 0.89, Estim Creat Clear Calc 78.60, Est GFR (MDRD) Af Amer 108, Est GFR (MDRD) Non-Af 89, BUN/Creatinine Ratio 7.8 L, Glucose 118 H, Calcium 7.8 L 06/21/21 05:35: Hemoglobin A1c 7.3 H 06/21/21 05:35: Retic Count 1.53 H, Immature Retic Fraction 26.30 H, Retic Hgb Equivalent 20.1 L 06/21/21 06:31: POC Glucose 129 H 06/21/21 10:44: POC Glucose 129 H Radiography Diagnostic Testing: Radiology Impression Echocardiogram 06/20/21 05:55 Interpretation Summary The study was technically difficult. Contrast injection was performed. Left ventricular systolic function is normal. The estimated ejection fraction is 65 %. There is mild mitral annular calcification. Extension of the mitral annular calcification onto the posterior mitral valve leaflet. Trivial mitral valve insufficiency. Mild tricuspid valve insufficiency. Mild focal aortic valve calcification. Epicardial fat. Unable to estimate RV systolic pressure/pulmonary artery pressure due to technically difficult study. Transmitral diastolic flow velocities suggest diastolic dysfunction (pseudonormal pattern). Ordering Physician: Austyn Echevarria Referring Physician: Oscar Castro Performed By: Melissa Barrera, TEREZA, RVT Physical Exam Narrative General: Alert, Oriented x3, Cooperative HEENT: Atraumatic, PERRLA, EOMI, Normocephalic Oral: No Gingival or Mucosal Lesions/ Ulcerations Neck: Supple, No JVD, Negative Carotid Bruits Lungs: Air entry equal in bilateral lung bases. No crepitation/rhonchi Cardiovascular: Sinus rhythm on monitor. Normal S1S2, pansystolic murmur grade 3/6 over cardiac apex Abdomen: Soft, no tenderness or rebound tenderness, distention, guarding rigid ity. Bowel Sounds Present : No renal angle tenderness. No suprapubic tenderness. Extremities: No edema, Capillary Refill Less than 3 Seconds Skin: No rashes, No breakdown Musculoskeletal: No Tenderness to Palpation of Joints or Extremities Neurological: Cranial nerves II-XII grossly intact, DTR 2+/4 and Symmetrical, Neuro grossly intact Psych/Mental Status: Normal Affect, Appropriate. Assessment & Plan Assessment/Plan (1) Dizziness: (2) Acute GI bleeding: (3) Coronary artery disease: QUALIFIERS: Coronary Disease-Associated Artery/Lesion type: bypass graft, autologous artery Associated angina: without angina Qualified Code(s): I25.810 - Atherosclerosis of coronary artery bypass graft(s) without angina pectoris PLAN: This 30-year-old, gentleman coming to ER with dizziness and lower GI bleed. 1. Dizziness, near syncope probably due to lower GI bleed/dehydration: Patient is being admitted in PCU on telemetry. Monitor H&H. IV fluid Ringer lactate dehydration. Currently, hemodynamically stable but if blood pressure drops will need bolus. IV Protonix every [address] abdomen with only oral contrast ordered as patient has iodine contrast allergy. Surgery consult and discussed with Dr. Brito. Monitor H&H every 6 hourly. Lactic acidosis probably due to GI bleed/abdominal pain. There is less suspicion of sepsis as patient does not have fever, or other SIRS criteria 06/20: Repeat lactic acid 3.[address] abdomen does not show any focal area of sepsis. CT abdomen shows diverticulosis but not diverticulitis. Plan for colonoscopy tomorrow a.m. Concern of internal hemorrhoids/fissure as there was tenderness noticed by surgeon during attempt for rectal exam. 06/21: H&H remained stable. 200 mg of IV iron sucrose ordered. Discussed with the surgeon. Plan for cystoscopy today. Reticulocyte count 1.53, immature reticulocyte fraction 26.3 suggestive of reactive bone marrow due to acute blood loss anemia. 2. Acute anemia probably from GI blood loss: Patient last hemoglobin was 9.2 in May 1621 currently 8.5. 06/20: Baseline hemoglobin in December was 12. Most recent 7.8 g%. 200 mg of IV iron sucrose ordered. Repeat H&H in evening and if less than 7.5, will transfuse 1 unit of RBC 3. Coronary artery disease status post quadruple bypass, paroxysmal A. fib, CHF unclear class, type and etiology probably ischemic, possible PAD: Hold Coumadin and Plavix. Hold antihypertensive medications as patient's blood pressure might drop. Continue statin and metoprolol with holding parameter. 06/21: Echo EF 65% with trivial MR and TR. No significant valvular stenosis or regurgitation. 4. Diabetes mellitus type 2: Accu-Chek insulin coverage blood sliding scale 5. Dyslipidemia and hypertension: Admission level VTE prophylaxis: Moderate risk. Bilateral SCDs. Pharmacological prophylaxis contraindicated in context of active GI bleed. Total time of the visit including total time spent in counseling or coordination of care, (more than 50% of the total time, spent in obtaining medical information from nurses and other ancillary care providers,explaining to the patient about labs, imaging, diagnosis and management), discussion with residential property consultant, review of labs and imaging is 30 minutes. Living will/advanced directive/end of life care: DNRCC arrest with no intubation Charges/Coding Visit Charges Inpatient E&M: 51764 Subs Hosp L2
--- NOTE | 2021-06-21 13:07 | OP.COLON_ITS ---
Patient Name: Oscar Cochran Procedure Date: 06/21/2021 12:11 PM Date of : 1950 Age: 71 Procedure: Colonoscopy Indications: Hematochezia Providers: Kimmy Brito MD Medicines: Monitored Anesthesia Care Patient Profile: This is a 71 year old male. Last Colonoscopy: 10 years ago. Complications: No immediate complications. Procedure: Pre-Anesthesia Assessment: - Prior to the procedure, a History and Physical was performed, and patient medications and allergies were reviewed. The patient's tolerance of previous anesthesia was also reviewed. The risks and benefits of the procedure and the sedation options and risks were discussed with the patient. All questions were answered, and informed consent was obtained. Prior Anticoagulants: The patient has taken Coumadin (warfarin), last dose was 2 days prior to procedure. ASA Grade Assessment: Per anesthesia. After reviewing the risks and benefits, the patient was deemed in satisfactory condition to undergo the procedure. - Prior to the procedure, a History and Physical was performed, and patient medications and allergies were reviewed. The patient's tolerance of previous anesthesia was also reviewed. The risks and benefits of the procedure and the sedation options and risks were discussed with the patient. All questions were answered, and informed consent was obtained. Prior Anticoagulants: The patient has taken Plavix (clopidogrel), last dose was 1 day prior to procedure. ASA Grade Assessment: Per anesthesia. After reviewing the risks and benefits, the patient was deemed in satisfactory condition to undergo the procedure. After I obtained informed consent, the scope was passed under direct vision. Throughout the procedure, the patient's blood pressure, pulse, and oxygen saturations were monitored continuously. The pediatric colonoscope was introduced through the anus and advanced to the cecum, identified by the ileocecal valve. The colonoscopy was technically difficult and complex due to significant looping. Successful completion of the procedure was aided by changing the patient to a supine position. The patient tolerated the procedure well. The quality of the bowel preparation was good. Scope In: 12:27:37 PM Scope Withdrawal Time 0 hours 7 minutes 34 seconds Scope Out: 12:55:14 PM Total Procedure Duration Time 0 hours 27 minutes 37 seconds Findings: Hemorrhoids were found on perianal exam. An anal fissure was found on perianal exam. Three semi-sessile, non-bleeding polyps were found in the transverse colon and ascending colon. The polyps were less than 5 mm in size. Polypectomy was not attempted due to the patient taking anticoagulation medication. Internal hemorrhoids were found. The hemorrhoids were Grade I (internal hemorrhoids that do not prolapse). Impression: - Hemorrhoids found on perianal exam. - Anal fissure found on perianal exam. - Three less than 5 mm, non-bleeding polyps in the transverse colon and in the ascending colon. Resection not attempted. - Internal hemorrhoids. - No specimens collected. Recommendation: - Repeat colonoscopy at appointment to be scheduled for polypectomy when not on coumadin. - Return to my office in 2 weeks. - Take Sitz baths BID and after each bowel movement. - Use hydrocortisone suppository 25 mg 2 per rectum once a day. - Diltiazem ointment for anal fissure - Continue present medications. Procedure Code(s): --- Professional --- 57627, Colonoscopy, flexible; diagnostic, including collection of specimen(s) by brushing or washing, when performed (separate procedure) Diagnosis Code(s): --- Professional --- K60.2, Anal fissure, unspecified D12.3, Benign neoplasm of transverse colon (hepatic flexure or splenic flexure) D12.2, Benign neoplasm of ascending colon K64.0, First degree hemorrhoids K92.1, Melena (includes Hematochezia) CPT copyright 2017 [employer]. All rights reserved. The codes documented in this report are preliminary and upon main galley scullion review may be revised to meet current compliance requirements. MD Kimmy Woody MD 06/21/2021 1:07:22 PM This report has been signed electronically. Number of Addenda: 0 Note Initiated On: 06/21/2021 12:11 PM
--- NOTE | 2021-06-21 13:08 | OP.CCLET_ITS ---
06/21/2021 Oscar Castro [address] [place] [address] Re : Colonoscopy procedure for Oscar Cochran Dear Dr. Castro This procedure was performed on Monday, June 21, 2021. My impressions and recommendations are as follows: Impressions : - Hemorrhoids found on perianal exam. - Anal fissure found on perianal exam. - Three less than 5 mm, non-bleeding polyps in the transverse colon and in the ascending colon. Resection not attempted. - Internal hemorrhoids. - No specimens collected. Recommendations : - Repeat colonoscopy at appointment to be scheduled for polypectomy when not on coumadin. - Return to my office in 2 weeks. - Take Sitz baths BID and after each bowel movement. - Use hydrocortisone suppository 25 mg 2 per rectum once a day. - Diltiazem ointment for anal fissure - Continue present medications. My findings are described in the full procedure note, which is enclosed. If I can be of further assistance, please feel free to contact me at Doctor phone number(s): , Work: . Sincerely, MD Kimmy Woody MD 06/21/2021 1:07:22 PM This report has been signed electronically.
[2021-06-21] MEDS: Acetaminophen 325 MG Tablet 650 MG PO (14:26)
[2021-06-21] MEDS: Isosorbide Mononitrate 30 MG Tablet PO (14:28)
[2021-06-21] MEDS: Lisinopril 10 MG Tablet PO (14:28)
--- NOTE | 2021-06-21 16:04 | PCM.DC ---
Discharge Instructions Diet Discharge Diet: Low fat / Low cholesterol and 2000 mg Sodium Diet Activity Discharge Activity: Return to Normal Activity and May Not Drive Dressing / Incision Call your doctor if you observe: Fever of 101 or Higher, Coldness, Increased Pain, Numbness or Tingling, Change in Color, Inability to urinate, Inability to have a bowel movement, Shortness of breath, Dizziness, Fainting spells, Swelling in the ankles, Chest pain, Prolonged hiccupping, Increased palpitations (irregular heartbeat), Calf discomfort and Uncontrolled pain Follow Up Care Please Follow Up With: Kimmy Brito MD When: in 2 weeks Test Results: Test results from this visit will be discussed in further detail at your follow-up appointment, if applicable. Discharge Plan Admission Admit Date/Time: 06/20/21 10:20 Primary Reason for Your Visit: Rectal bleed most probably from hemorrhoids Attending Provider: Austyn Echevarria Primary Care Provider: Oscar Castro Consulting Providers: Kimmy Brito Instructions Patient Instructions: Bleeding Gastrointestinal, Discharge Instructions for ... Discharge Orders/Prescriptions Prescriptions: New isosorbide mononitrate 30 mg Tablet Extended Release 24 Hr 30 mg PO DAILY Qty: 0 RF: 0 Continued multivitamin Tablet 1 tab PO DAILY RF: 0 furosemide [Lasix] 40 mg Tablet 40 mg PO DAILY RF: 0 famotidine 40 mg Tablet 40 mg PO DAILY RF: 0 metoprolol succinate [Toprol XL] 100 mg Tablet Extended Release 24 Hr 100 mg PO Q12H RF: 0 isosorbide mononitrate 60 mg Tablet Extended Release 24 Hr 60 mg PO DAILY RF: 0 potassium chloride [Klor-Con] 20 mEq Packet 20 meq PO DAILY RF: 0 pravastatin 80 mg Tablet 80 mg PO QHS RF: 0 metformin 1,000 mg Tablet 1,000 mg PO BID RF: 0 nitroglycerin [Nitrostat] 0.4 mg Tablet, Sublingual 0.4 mg SUBLINGUAL Q5M PRN (Reason: Chest Pain) RF: 0 folic acid 800 mcg Tablet 0.8 mg PO BID RF: 0 Januvia 50 mg Tablet 50 mg PO DAILY RF: 0 cilostazol 50 mg Tablet 50 mg PO BID RF: 0 clopidogrel 75 mg Tablet 75 mg PO DAILY Qty: 0 RF: 0 warfarin 2 mg Tablet 7 mg PO MOFR Qty: 0 RF: 0 warfarin 2 mg Tablet 6 mg PO SUTUWETHSA Qty: 0 RF: 0 Changed lisinopril 20 mg Tablet 10 mg PO DAILY Qty: 0 RF: 0 Referrals / Follow Up: Oscar Castro MD [Primary Care Provider] - In 1 Week (Call PCP within 3 days to notify about holding warfarin and Plavix. Check PT/INR in 3 days with PCP.) Disposition Disposition (needs filled in before D/C Order can be placed): Home, Self Care
--- NOTE | 2021-06-21 16:15 | DS.PCM_ITS ---
Providers Date of Admission: 06/20/21 Primary Care Physician: Dr. Oscar Castro MD Consultations 06/19/21 19:34 Consult: General Surgery Routine Consulting Provider: Kimmy Brito Reason for Consult: Lower GI Bleed, LLQ abd pain EMERGENT Consult: No MD Notified: Yes Date Notified: 06/19/21 Time Notified: 18:33 Method of Notification: Verbal Reason For Visit: DIZZINESS WITH GI BLEED Diagnosis Discharge Diagnosis (1) Dizziness: Status: Acute Code(s): R42 - Dizziness and giddiness (2) Acute GI bleeding: Status: Acute Code(s): K92.2 - Gastrointestinal hemorrhage, unspecified (3) Coronary artery disease: Status: Acute Code(s): I25.10 - Atherosclerotic heart disease of [place] coronary artery without angina pectoris Qualifiers: Coronary Disease-Associated Artery/Lesion type: bypass graft, autologous artery Associated angina: without angina Qualified Code(s): I25.810 - Atherosclerosis of coronary artery bypass graft(s) without angina pectoris Medications at Discharge Home Medications Januvia 50 mg PO DAILY 06/02/21 famotidine 40 mg PO DAILY 06/02/21 folic acid 0.8 mg PO BID 06/02/21 furosemide [Lasix] 40 mg PO DAILY 06/02/21 isosorbide mononitrate 60 mg PO DAILY 06/02/21 metformin 1,000 mg PO BID 06/02/21 metoprolol succinate [Toprol XL] 100 mg PO Q12H 06/02/21 multivitamin 1 tab PO DAILY 06/02/21 nitroglycerin [Nitrostat] 0.4 mg SUBLINGUAL Q5M PRN 06/02/21 potassium chloride [Klor-Con] 20 meq PO DAILY 06/02/21 pravastatin 80 mg PO QHS 06/02/21 cilostazol 50 mg PO BID 06/19/21 clopidogrel 75 mg PO DAILY #0 tab 06/21/21 isosorbide mononitrate 30 mg PO DAILY #0 tab 06/21/21 lisinopril 10 mg PO DAILY #0 tab 06/21/21 warfarin 6 mg PO SUTUWETHSA #0 tab 06/21/21 warfarin 7 mg PO MOFR #0 tab 06/21/21 Hospital Course Summary of Care Provided Hospital Course: This 71-year-old, gentleman coming to ER with dizziness and lower GI bleed. 1. Dizziness, near syncope probably due to lower GI bleed/dehydration: Patient was admitted in PCU on telemetry. IV fluid Ringer lactate resuscitation was done. CT abdomen showed diverticulosis but not diverticulitis nor any focal area of sepsis therefore lactic acid most probably from GI bleed. No signs and symptoms of sepsis therefore ruled out. Colonoscopy was done and found hemo rrhoids on perianal exam and anal fissure. 3 less than 5 mm nonbleeding polyps in transverse colon and ascending colon. Resection not attempted. Patient was prescribed hydrocortisone suppository 25 mg 2 per rectum once a day, diltiazem ointment for anal fissure sitz bath 3 times daily after each bowel movement. Follow-up with Dr. Brito in 2 weeks. 2. Acute anemia probably from GI blood loss: Patient last hemoglobin was 9.2 in May, and 12 in December 2020.H&H monitoring was done and hemoglobin remained stable between 7.5-8.5. Had 2 doses of 200 mg IV sucrose. Reticulocyte count 1.53, immature reticulocyte fraction 26.3 suggestive of reactive bone marrow due to acute blood loss anemia. Patient had black stool today therefore keep holding Plavix and Coumadin for 3 days and call PCP to make an early appointment in 3 days with follow-up PT/INR. 3. Coronary artery disease status post quadruple bypass, paroxysmal A. fib, CHF unclear class, type and etiology probably ischemic, possible PAD: Hold Coumadin and Plavix. Hold antihypertensive medications as patient's blood pressure might drop. Continue statin and metoprolol with holding parameter. 2D echo was done and reported EF 65% with trivial MR and TR. No significant valvular stenosis or regurgitation. 4. Diabetes mellitus type 2: Accu-Chek insulin coverage blood sliding scale 5. Dyslipidemia and hypertension: Admission level VTE prophylaxis: Moderate risk. Bilateral SCDs. Pharmacological prophylaxis contraindicated in context of active GI bleed. Living will/advanced directive/end of life care: DNRCC arrest with no intubation Discharge medication reconciliation done. Discharge follow-up instructions completed. Discharge process discussed with the patient and all questions were answered to patient's satisfaction. Total time spent, exact 35 minutes on discharge meds reconciliation, examinatio n, coordination of care with nurses and ancillary staff, review of imaging and blood test and discussion with the patient on follow-up instructions Physical Exam Narrative Patient was seen and examined today. Exam findings in the progress note of the same date. Patient had colonoscopy. Passed urine after the procedure. Wants to go home. Discussed with nursing staff. Medical Records Data Medical Nutrition Assessment Dietitian: Nutrition Therapy Diagnosis Start: 06/20/21 15:01 Freq: Status: Active Protocol: Document 06/20/21 15:08 (Rec: 06/20/21 15:08 [id number]) Nutrition Malnutrition Evidence of Malnutrition Exists No Intake Problem Inadequate Oral Intake Etiology r/t GI dysfunction Signs/Symptoms as evidenced by estimated PO intake meeting <50% of estimated nutritional needs x 1 day Status Active Problem Recommendation Dietitian Recommendations/Changes Advance diet as tolerated to cardiac when medically indicated. Weight / BMI Weight Weight: 245 lb 5.992 oz Body Mass Index (BMI) 35.2 ABG / Lab / Microbiology Data Result Diagrams: 06/21/21 05:35 06/21/21 05:35 Laboratory: Laboratory Results - last 24 hr 06/20/21 16:07: Hgb 8.4 L, Hct 29.2 L 06/21/21 05:35: PT 20.5 H, INR 1.8 06/21/21 05:35: WBC 5.4, RBC 3.70 L, Hgb 7.8 L, Hct 27.1 L, MCV 73.2 L, MCH 21.1 L, MCHC 28.8 L, RDW Std Deviation 42.3, RDW Coeff of Otto 16.0 H, Plt Count 334, MPV 9.2, Immature Gran % (Auto) 0.200, Neut % (Auto) 44.0 L, Lymph % (Auto) 40.7, [place] % (Auto) 10.4 H, Eos % (Auto) 4.3, Baso % (Auto) 0.4, Absolute Neuts (auto) 2.4, Absolute Lymphs (auto) 2.18, Nucleated RBC % 0 06/21/21 05:35: Sodium 138, Potassium 3.6, Chloride 107, Carbon Dioxide 23.0, Anion Gap 8, BUN 7, Creatinine 0.89, Estim Creat Clear Calc 78.60, Est GFR (MDRD) Af Amer 108, Est GFR (MDRD) Non-Af 89, BUN/Creatinine Ratio 7.8 L, Glucose 118 H, Calcium 7.8 L 06/21/21 05:35: Hemoglobin A1c 7.3 H 06/21/21 05:35: Retic Count 1.53 H, Immature Retic Fraction 26.30 H, Retic Hgb Equivalent 20.1 L 06/21/21 06:31: POC Glucose 129 H 06/21/21 10:44: POC Glucose 129 H D/C Instructions Discharge Diet: Low fat / Low cholesterol and 2000 mg Sodium Diet Call your doctor if you observe: Fever of 101 or Higher, Coldness, Increased Pain, Numbness or Tingling, Change in Color, Inability to urinate, Inability to have a bowel movement, Shortness of breath, Dizziness, Fainting spells, Swelling in the ankles, Chest pain, Prolonged hiccupping, Increased palpitations (irregular heartbeat), Calf discomfort and Uncontrolled pain Please Follow Up With: Kimmy Brito MD When: in 2 weeks Meaningful Use Info Meaningful Use Diagnoses (Choose all that apply): None applicable Discharge Plan Admission Admit Date/Time: 06/20/21 10:20 Primary Reason for Your Visit: Rectal bleed most probably from hemorrhoids Attending Provider: Austyn Echevarria Primary Care Provider: Oscar Castro Consulting Providers: Kimmy Brito Instructions Patient Instructions: Bleeding Gastrointestinal, Discharge Instructions for ... Discharge Orders/Prescriptions Prescriptions: New isosorbide mononitrate 30 mg Tablet Extended Release 24 Hr 30 mg PO DAILY Qty: 0 RF: 0 Continued multivitamin Tablet 1 tab PO DAILY RF: 0 furosemide [Lasix] 40 mg Tablet 40 mg PO DAILY RF: 0 famotidine 40 mg Tablet 40 mg PO DAILY RF: 0 metoprolol succinate [Toprol XL] 100 mg Tablet Extended Release 24 Hr 100 mg PO Q12H RF: 0 isosorbide mononitrate 60 mg Tablet Extended Release 24 Hr 60 mg PO DAILY RF: 0 potassium chloride [Klor-Con] 20 mEq Packet 20 meq PO DAILY RF: 0 pravastatin 80 mg Tablet 80 mg PO QHS RF: 0 metformin 1,000 mg Tablet 1,000 mg PO BID RF: 0 nitroglycerin [Nitrostat] 0.4 mg Tablet, Sublingual 0.4 mg SUBLINGUAL Q5M PRN (Reason: Chest Pain) RF: 0 folic acid 800 mcg Tablet 0.8 mg PO BID RF: 0 Januvia 50 mg Tablet 50 mg PO DAILY RF: 0 cilostazol 50 mg Tablet 50 mg PO BID RF: 0 clopidogrel 75 mg Tablet 75 mg PO DAILY Qty: 0 RF: 0 warfarin 2 mg Tablet 7 mg PO MOFR Qty: 0 RF: 0 warfarin 2 mg Tablet 6 mg PO SUTUWETHSA Qty: 0 RF: 0 Changed lisinopril 20 mg Tablet 10 mg PO DAILY Qty: 0 RF: 0 Referrals / Follow Up: Oscar Castro MD [Primary Care Provider] - In 1 Week (Call PCP within 3 days to notify about holding warfarin and Plavix. Check PT/INR in 3 days with PCP.) Disposition Disposition (needs filled in before D/C Order can be placed): Home, Self Care Charges/Coding Addendum Addendum: Cancel the billing charge of progress note of the same date Visit Charges Inpatient E&M: 39118 [facility]
--- NOTE | 2021-06-22 14:27 | CASEMGMT ---
AIDE HARRIS Discharge Follow-up Phone Call: HARPALCari: Shagufta Strata: 3 Call Date: 06/22/21 Discharge Date: 06/21/21 Time of Call: 1425 Duration: 3 min Admitting Diagnosis: Dizziness with GI Bleed AIDE HARRIS completed follow-up phone call after recent hospitalization. Patient states he is doing much better. Patient had no questions or concerns regarding discharge instructions. Patient states he has follow-up appt with PCP. Patient states they have filled prescriptions without any issues. Patient had no further questions or concerns.
== END 2021-06-21 16:47 | disposition home or self-care (01) | DRG 378 ==
LOC: ED 18:12 → PCU 21:44
PROVIDERS: Anesthesiology; Surgery; Admitting Provider Internal Medicine; Emergency Provider Emergency Medicine; PCP Family Medicine; Visit Provider Internal Medicine
PROC: 0DJD8ZZ Inspection of Lower Intestinal Tract, Via Natural or Artificial Opening Endoscopic (ICD-10-PCS; CPT 45378; principal; 2021-06-21 11:55)
DX: K92.1 Melena (principal); D62 Acute posthemorrhagic anemia; E86.0 Dehydration; I25.10 Atherosclerotic heart disease of native coronary artery without angina pectoris; K57.90 Diverticulosis of intestine, part unspecified, without perforation or abscess without bleeding; I50.9 Heart failure, unspecified; K60.2 Anal fissure, unspecified; K64.0 First degree hemorrhoids; I11.0 Hypertensive heart disease with heart failure; D12.3 Benign neoplasm of transverse colon; D12.2 Benign neoplasm of ascending colon; I48.0 Paroxysmal atrial fibrillation; E78.5 Hyperlipidemia, unspecified; Z66 Do not resuscitate; Z95.1 Presence of aortocoronary bypass graft; Z87.891 Personal history of nicotine dependence; Z91.041 Radiographic dye allergy status; Z79.01 Long term (current) use of anticoagulants; Z86.718 Personal history of other venous thrombosis and embolism; Z95.5 Presence of coronary angioplasty implant and graft; E11.51 Type 2 diabetes mellitus with diabetic peripheral angiopathy without gangrene; G47.30 Sleep apnea, unspecified; Z51.5 Encounter for palliative care; Z79.02 Long term (current) use of antithrombotics/antiplatelets; Z79.84 Long term (current) use of oral hypoglycemic drugs; Z82.49 Family history of ischemic heart disease and other diseases of the circulatory system; Z88.0 Allergy status to penicillin; Z79.899 Other long term (current) drug therapy
CPT/HCPCS: 36415; 74176; 80048; 80053; 82962; 83036; 83605; 83690; 83735; 84484; 85014; 85018; 85025; 85045; 85610; 85730; 93005; 93306; 97166; 99251; 99284; J1756; J7050; J7120; Q9957; A4216; C8929; G0463; J2405; J2916; J3490

== ENCOUNTER → 2021-06-29 15:26 | Outpatient (CLI) | payer MEDICARE, OTHER, SELFPAY ==
[2021-06-21 10:39] VITALS: BMI 35.2
[2021-06-29 17:31] LABS: Hematocrit 30.8 % (40-54); Hemoglobin 8.8 g/dL (13.0-16.5)
== END ==
PROVIDERS: Nurse Practitioner Family; PCP Family Medicine; Visit Provider Family Medicine
DX: D50.0 Iron deficiency anemia secondary to blood loss (chronic) (principal)
CPT/HCPCS: 36415; 85014; 85018

== ENCOUNTER → 2021-07-13 09:16 | Outpatient (CLI) | payer MEDICARE, OTHER, SELFPAY ==
[2021-07-13 09:29] LABS: Hematocrit 35.4 % (40-54); Hemoglobin 10.2 g/dL (13.0-16.5); Mean Corp Hgb Conc 28.8 g/dL (32-36); Mean Corpuscular Volume 76.3 fL (80-94); Mean Platelet Vol. 8.9 fl (6.2-12.0); POSITIVE MORPHOLOGY YES; Platelet Count 409 K/mm3 (150-450); RBC Distribution Width CV 21.4 % (11.6-14.6); RBC Distribution Width SD 56.9 fl (35.1-43.9); Red Blood Count 4.64 M/mm3 (4.6-6.2)
[2021-07-13 09:30] LABS: Scan Indicated on CBC? Y/N YES- FLAGS NOTED
[2021-07-13 09:57] LABS: Differential Comment SCANNED
== END ==
PROVIDERS: PCP Family Medicine; Referring Provider Physician Assistant; Visit Provider Physician Assistant
DX: D64.9 Anemia, unspecified (principal)
CPT/HCPCS: 36415; 85027

== ENCOUNTER → 2021-07-17 16:04 | Outpatient (CLI) | payer MEDICARE, OTHER, SELFPAY ==
[2021-07-20 19:40] LABS: PSA, Free 0.68 ng/mL; PSA, Free % 11.7 % (.); PSA, Total Ultrasensitive 5.8 ng/mL (0.0-4.0)
== END ==
PROVIDERS: PCP Family Medicine; Visit Provider Nurse Practitioner Adult Health
DX: R97.20 Elevated prostate specific antigen [PSA] (principal)
CPT/HCPCS: 36415; 84153; 84154

== ENCOUNTER → 2021-07-27 16:56 | Outpatient (CLI) | payer MEDICARE, OTHER, SELFPAY ==
[2021-07-27 17:26] LABS: Hematocrit 32.3 % (40-54); Hemoglobin 9.3 g/dL (13.0-16.5); Mean Corp Hgb Conc 28.8 g/dL (32-36); Mean Corpuscular Hgb 22.1 pg (27.0-32.0); Mean Corpuscular Volume 76.9 fL (80-94); Mean Platelet Vol. 8.9 fl (6.2-12.0); POSITIVE MORPHOLOGY YES; Platelet Count 351 K/mm3 (150-450); RBC Distribution Width CV 21.4 % (11.6-14.6); RBC Distribution Width SD 59.7 fl (35.1-43.9); White Blood Count 6.9 K/mm3 (4.4-11.0)
[2021-07-27 17:36] LABS: Scan Indicated on CBC? Y/N YES- FLAGS NOTED
[2021-07-27 17:54] LABS: Anion Gap 5 (5-15); BUN 16 mg/dL (7-18); BUN/Creat Ratio 18.1 RATIO (10-20); Calcium,Total 8.5 mg/dL (8.5-10.1); Chloride 107 mmol/L (98-107); Creatinine, Serum 0.89 mg/dL (0.70-1.30); EST Glomerular Filtration Rate 90 mL/min (>60); Est Glom Filt Rate - Afr Amer 109 mL/min (>60); Glucose 134 mg/dL (74-106); Sodium Level 138 mmol/L (136-145)
[2021-07-27 18:09] LABS: Differential Comment SCANNED
== END ==
PROVIDERS: PCP Family Medicine; Visit Provider Urology
DX: Z01.812 Encounter for preprocedural laboratory examination (principal); I10 Essential (primary) hypertension
CPT/HCPCS: 36415; 80048; 85027

== ENCOUNTER → 2021-08-04 16:54 | Outpatient (CLI) | payer MEDICARE, OTHER, SELFPAY ==
--- NOTE | 2021-08-04 | IMM_PTH ---
PATIENT: BASILIA CONKLIN LOC: [facility] U#:[id number] AGE/SX: 75/M ROOM: RE08/04/[address]: Dr. Steven Pierce MD : 1950 BED: DIS: SPEC #: [id number] RECD: 08/08/21 13:39 STATUS: ANU REQ #: [id number] LITZY: 08/04/21 00:[address]: Steven Pierce DEPT: IMMUNOHISTOCHEMISTRY RECD BY: Enma Spencer ENTERED: 08/08/21 13:42 SP TYPE: IMMUNO OTHR DR: Dr. Basilia Castro MD Tissues: A - PROSTATE LEFT B - PROSTATE LEFT C - PROSTATE LEFT D - PROSTATE RIGHT E - PROSTATE RIGHT F - PROSTATE RIGHT Procedures: 34BE12 (add) P40 (add) 34BE12 (initial) PHYSICIAN & INSTITUTION [place] [id number] SPECIMEN INFORMATION: Tissue Source: A ? Left base, B ? Left mid, C ? Left apex, D ? Right base, E ? Right mid, F ? Right apex Clinical Info: Elevated PSA Specimen Number: [id number] A-F CPT code: 06840, 51865 x11 METHODOLOGY: Deparaffinized sections of prefer/formalin-fixed tissue or PAP/DQ stained slides are incubated with monoclonal/polyclonal antibodies/oligonucleotide probes. Localization is made via biotin free immunoperoxidase method. Appropriate controls are performed and reacted as expected. Results on target cell population are indicated in the following table: RESULTS: ANTIBODY / CLONE RESULT Block A P40 (BC28) negative 34BE12 (34BE12) negative Block B P40 (BC28) positive 34BE12 (34BE12) positive Block C P40 (BC28) positive 34BE12 (34BE12) positive Block D P40 (BC28) positive 34BE12 (34BE12) positive Block E P40 (BC28) positive 34BE12 (34BE12) positive Block F P40 (BC28) negative 34BE12 (34BE12) negative These tests were developed and their performance characteristics determined by [facility]. They may not have been cleared or approved by the U.S. Food and Drug Administration. The FDA has determined that such clearance or approval is not necessary. The above immunohistochemical/dualISH markers are ordered and reviewed by the Pathologist. INTERPRETATION: A. Left prostate, base, core biopsy: Adenocarcinoma. B. Left prostate, mid, core biopsy: Negative for malignancy. C. Left prostate, apex, core biopsy: Negative for malignancy. D. Right prostate, base, core biopsy: Negative for malignancy. E. Right prostate, mid, core biopsy: Negative for malignancy. F. Right prostate, apex, core biopsy: Adenocarcinoma. SJ:festus 08/09/2021 Case has been reviewed in consultation with Dr. Moe who concurs with the above diagnosis. IDC:[id number]
--- NOTE | 2021-08-04 | PROSBIL_PTH ---
PATIENT: BASILIA CONKLIN LOC: [facility] U#:[id number] AGE/SX: 75/M ROOM: RE08/04/[address]: Dr. Steven Pierce MD : 1950 BED: DIS: SPEC #: [id number] RECD: 08/04/21 14:50 STATUS: ANU BEVERLY #: [id number] LITZY: 08/04/21 00:[address]: Steven Pierce DEPT: SURGICAL PATHOLOGY RECD BY: Cameron Gibbons ENTERED: 08/05/21 16:41 SP TYPE: PROST BX FRANKLY[place] DR: Dr. Basilia Castro MD [facility] Tissues: A - PROSTATE LEFT B - PROSTATE LEFT C - PROSTATE LEFT D - PROSTATE RIGHT E - PROSTATE RIGHT F - PROSTATE RIGHT Procedures: PROSTATE BX HEADER OPERATION: Transrectal ultrasound-guided biopsy of prostate PRE-OP DIAGNOSIS: Elevated PSA TISSUE SUBMITTED: A ? Left base, B ? Left mid, C ? Left apex, D - Right base, E - Right mid, F - Right apex MICROSCOPIC DIAGNOSIS A. Left prostate, base, core biopsy: Prostatic adenocarcinoma. [place] grade: 3+3=6 Number of cores involved: 1/2 Proportion of tissue involved: <5% Perineural invasion: Not identified. Greatest tumor length: 0.2 cm, discontinuous. See comment. B. Left prostate, mid, core biopsy: Prostatic tissue, negative for malignancy. See comment. C. Left prostate, apex, core biopsy: Prostatic tissue, negative for malignancy. See comment. D. Right prostate, base, core biopsy: Prostatic tissue, negative for malignancy. See comment. E. Right prostate, mid, core biopsy: Prostatic tissue, negative for malignancy. See comment. F. Right prostate, apex, core biopsy: Prostatic adenocarcinoma. [place] grade: 3+3=6 Number of cores involved: 2/2 Proportion of tissue involved: 15-20% Perineural invasion: Not identified. Greatest tumor length: 0.4 cm See comment. SJ:rg 08/08/2021 COMMENT A-F. Immunohistochemistry ([id number]) supports the above diagnosis. Case has been reviewed in consultation with Dr. Moe who concurs with the above diagnosis. IDC:AM MICROSCOPIC DESCRIPTION Slides are reviewed. GROSS DESCRIPTION A - Received is one container designated prostate, left base. The specimen consists of two elongated fragments of light shepherd-white soft tissue each measuring 1 cm in length and 0.1 cm in diameter. The specimen is totally submitted in one cassette. B - Received is one container designated prostate, left mid. The specimen consists of two elongated fragments of light shepherd-white soft tissue each measuring 1 cm in length and 0.1 cm in diameter. The specimen is totally submitted in one cassette. C - Received is one container designated prostate, left apex. The specimen consists of two elongated fragments of light shepherd-white soft tissue each measuring 1.5 cm in length and 0.1 cm in diameter. The specimen is totally submitted in one cassette. D - Received is one container designated prostate, right base. The specimen consists of two elongated fragments of light shepherd-white soft tissue each measuring 1 cm in length and 0.1 cm in diameter. The specimen is totally submitted in one cassette. E - Received is one container designated prostate, right mid. The specimen consists of two elongated fragments of light shepherd-white soft tissue each measuring 1 cm in length and 0.1 cm in diameter. The specimen is totally submitted in one cassette. F - Received is one container designated prostate, right apex. The specimen consists of two elongated fragments of light shepherd-white soft tissue each measuring 1.5 cm in length and 0.1 cm in diameter. The specimen is totally submitted in one cassette. / AM:festus 08/07/21 TC:0 [facility]: [id number]
== END ==
PROVIDERS: PCP Family Medicine; Visit Provider Urology
DX: R97.20 Elevated prostate specific antigen [PSA] (principal)
CPT/HCPCS: 88305; 88341; 88342; G0416

== ENCOUNTER 2021-08-07 10:25 | Emergency (ER) | payer MEDICARE, OTHER, SELFPAY ==
[2021-08-07] VITALS (8 sets, daily range): BP systolic 88–127; BP diastolic 46–107; PULSE 67–98; RESP 16–32; TEMP 35.5; O2SAT 95–100; BMI 35.3
--- NOTE | 2021-08-07 10:28 | EKG12_ITS ---
Test Reason : UNRESPONSIVE Blood Pressure : / mmHG Vent. Rate : 091 BPM Atrial Rate : 091 BPM P-R Int : 196 ms QRS Dur : 086 ms QT Int : 368 ms P-R-T Axes : 046 -49 076 degrees QTc Int : 452 ms Normal sinus rhythm Left axis deviation Nonspecific ST abnormality Abnormal ECG Confirmed by LADY HUANG, MADELIN ([id number]), supervising editor trailer MILEY CASTRO ([id number]) on 08/08/2021 2:06:07 PM Referred By: SOFIA Confirmed By:MADELIN NARAYANAN MD
[2021-08-07] MEDS: Ondansetron 4 MG/2 ML Vial IV ×2 (10:38→11:46)
[2021-08-07] MEDS: fentaNYL 100 MCG/2 ML Ampul 50 MCG IV ×3 (10:38→13:11)
[2021-08-07] MEDS: MethylPREDNISolone 125 MG/2 ML Vial IV (10:45)
--- NOTE | 2021-08-07 10:45 | CT_ITS ---
STUDY: CT CHEST, ABDOMEN T PELVIS WITH CONTRAST REASON FOR EXAM: Male, 71 years old. Aortic dissection. Mottling distal to the umbilicus. RADIATION DOSAGE (If Supplied By Facility): CTDIvol = ( 15.92 ) mGy, DLP = ( 1497.30 ) mGycm TECHNIQUE: Transaxial imaging was performed following intravenous administration of IV 100mL Isovue-370. Individualized dose optimization techniques were used for this CT. COMPARISON: Comparison is made with prior study dated 06/19/2021 FINDINGS: CHEST The lungs are normal. There is no demonstrated pleural abnormality. Sternal cerclage wires and vascular clips are present from a prior sternotomy and coronary artery bypass graft procedure (CABG). There are calcifications of the coronary arteries. There are multiple small lymph nodes within the mediastinum, which are normal in size and morphology most compatible with reactive lymph hyperplasia. Normal hilar regions. Normal unenhanced pulmonary arteries. Mild degree of atherosclerotic plaque formation of the aortic arch. There is no evidence of a dissection. There are multi-level degenerative changes of the thoracic spine. Small hiatal hernia. Fatty infiltration of the liver. ABDOMEN There is decreased attenuation of the liver consistent with steatosis. Normal gallbladder and extrahepatic biliary system. Normal spleen. Normal pancreas. Normal bilateral adrenal glands. Normal right kidney. Normal left kidney. Normal visualized stomach. Normal small intestine. Normal colon. The appendix is visualized and appears normal. There is diffuse atherosclerotic calcification of the abdominal aorta and its major visceral branches, without a demonstrated aneurysm. There is an IVC filter in place. The diameter of the inferior vena cava is greater distal to the IVC filter as compared to the diameter proximal to the IVC filter. The discrepancy in diameter as progressed as compared to prior examination dated 06/19/2021. Normal retroperitoneum. Small bilateral inguinal hernias containing fat. There are diffuse degenerative changes of the visualized lumbar spine. PELVIS Normal urinary bladder. Normal visualized small intestine. Normal visualized colon. There is no pelvic fluid. There is no pelvic lymphadenopathy or mass lesion. There is diffuse atherosclerotic calcification of the pelvic arteries. Normal abdominal wall. There are diffuse degenerative changes of the visualized lumbar spine. CT/CT Chest, Abd, Pel w/Contrast IMPRESSION: No evidence of aortic dissection. IVC filter in place. The IVC is distended distal to the placement of the filter. Electronically Signed: Nithin Marti MD at 11:11 EDT , Service support ,
[2021-08-07] MEDS: 0.9% Normal Saline 1,000 ML 1000 ML IV ×2 (10:52→13:15)
[2021-08-07] MEDS: 0.9% Normal Saline 1,000 ML 999 ML IV (11:53)
[2021-08-07 12:06] LABS: ALB/GLOB Ratio 0.8 RATIO (0.9-2.4); AST(SGOT) 33 U/L (15-37); Albumin, Serum 3.7 g/dL (3.2-5.0); BUN 18 mg/dL (7-18); BUN/Creat Ratio 10.9 RATIO (10-20); Calcium,Total 9.2 mg/dL (8.5-10.1); Creatinine, Serum 1.65 mg/dL (0.70-1.30); EST Glomerular Filtration Rate 44 mL/min (>60); Est Glom Filt Rate - Afr Amer 53 mL/min (>60); Globulin 4.8 g/dL (2.2-4.2); Glucose 273 mg/dL (74-106); Lipase 243 U/L (73-393); Protein, Total 8.5 g/dL (6.4-8.2); Troponin-I HS 10 pg/mL (3.0-78.0)
[2021-08-07 12:07] LABS: Absolute Lymphocyte Count 4.32 X10^3/uL (0.83-4.51); Alanine Aminotransfer ALT/SGPT 74 U/L (16-61); Alkaline Phosphatase 57 U/L (45-117); Anion Gap 15 (5-15); Basophil# 0.06 X10^3/uL; Basophil% 0.4 % (0-1); Chloride 104 mmol/L (98-107); Eosinophil# 0.22 X10^3/uL; Eosinophils% 1.5 % (0-5); Hemoglobin 10.3 g/dL (13.0-16.5); Lymphocyte # 4.32 X10^3/ul (0.83-4.51); Lymphocyte % 28.8 % (19-41); Mean Corp Hgb Conc 27.8 g/dL (32-36); Mean Corpuscular Hgb 22.2 pg (27.0-32.0); Mean Corpuscular Volume 79.7 fL (80-94); Mean Platelet Vol. 9.8 fl (6.2-12.0); Monocyte# 1.34 X10^3/uL; Monocyte% 8.9 % (0-10); NRBC Flagged by Analyzer 0 % (0-5); Neutrophil # 8.98 X10^3/uL (2.7-7.7); Neutrophil % 59.9 % (47-70); POSITIVE MORPHOLOGY YES; Platelet Count 481 K/mm3 (150-450); Potassium 3.4 mmol/L (3.5-5.1); RBC Distribution Width CV 21.2 % (11.6-14.6); RBC Distribution Width SD 61.1 fl (35.1-43.9); Red Blood Count 4.64 M/mm3 (4.6-6.2); Sodium Level 137 mmol/L (136-145)
[2021-08-07 12:09] LABS: Differential Indicated SCAN CRITERIA MET
[2021-08-07 12:10] LABS: International Normalized Ratio 1.2; Prothrombin Time (Protime)PT. 14.4 SECONDS (11.7-14.9)
[2021-08-07 12:11] LABS: Partial Thromboplast Time 25.5 Seconds (24.1-36.2)
[2021-08-07 12:40] LABS: Anisocytosis 2+; Differential Comment SCANNED; Macrocytosis 1+; Microcytosis 1+
[2021-08-07 12:50] LABS: Lactic Acid 6.2 mmol/L (0.4-1.9)
--- NOTE | 2021-08-07 13:13 | EX.ED.DYSGE1 ---
HPI History of Present Illness Chief Complaint: Alt LOC Informant: patient, spouse/S.O. and EMS Narrative Narrative: 71-year-old male developed severe low back pain today. He reportedly had several syncopal episodes at home. EMS noted a blood pressure of 60 and that he seemed to be passing out. They are unable to establish an IV so they gave IV fluids through a IO in the right tibia. He is feeling nauseated. Patient states his legs hurt and they feel cold. He was on Coumadin up until about 1 month ago. He had a lower GI bleed and his Plavix and Coumadin were held. He has not yet resumed. He has an IVC filter in with a history of MTHFR. He also has a history of atrial fibrillation. [facility] Medical History (Updated 08/07/21 @ 13:[address] Evan Deleon, ) Anemia Anemia Atrial fibrillation Blood disorder Congestive heart failure (CHF) Coronary artery disease Diabetes Hemorrhoids, internal Hyperlipidemia Hypertension Sleep apnea Home Medications Januvia 50 mg PO DAILY 06/02/21 [History Last Taken 06/19/21] folic acid 0.8 mg PO BID 06/02/21 [History Last Taken 06/19/21] furosemide [Lasix] 40 mg PO DAILY 06/02/21 [History Last Taken 06/19/21] isosorbide mononitrate 60 mg PO DAILY 06/02/21 [History Last Taken 06/19/21] metformin 1,000 mg PO BID 06/02/21 [History Last Taken 06/19/21] metoprolol succinate [Toprol XL] 100 mg PO Q12H 06/02/21 [History Last Taken 06/19/21] multivitamin 1 tab PO DAILY 06/02/21 [History Last Taken 06/19/21] nitroglycerin [Nitrostat] 0.4 mg SUBLINGUAL Q5M PRN 06/02/21 [History Last Taken Unknown] potassium chloride [Klor-Con] 20 meq PO DAILY 06/02/21 [History Last Taken 06/19/21] pravastatin 80 mg PO QHS 06/02/21 [History Last Taken 06/18/21] cilostazol 50 mg PO BID 06/19/21 [History Last Taken 06/19/21] clopidogrel 75 mg PO DAILY #0 tab 06/21/21 [Rx Last Taken 06/19/21] lisinopril 10 mg PO DAILY #0 tab 06/21/21 [Rx Last Taken 06/19/21] warfarin 6 mg PO SUTUWETHSA #0 tab 06/21/21 [Rx Last Taken 06/18/21] warfarin 7 mg PO MOFR #0 tab 06/21/21 [Rx Last Taken 06/16/21] isosorbide mononitrate 30 mg PO DAILY #30 tab 06/22/21 [Rx Last Taken Unknown] lisinopril 10 mg PO DAILY #30 tab 06/22/21 [Rx Last Taken Unknown] ferrous sulfate 325 mg (65 mg iron) tablet 325 mg PO TID 30 Days #90 tab 07/13/21 [Rx Last Taken Unknown] pantoprazole 40 mg tablet,delayed release 40 mg PO DAILY 30 Days #30 tab 07/13/21 [Rx Last Taken Unknown] famotidine 40 mg PO DAILY 08/07/21 [History Last Taken Unknown] Allergy/AdvReac Type Severity Reaction Status Date / Time amoxicillin Allergy Hives Verified 08/07/21 10:30 atorvastatin Allergy NEEDS Verified 08/07/21 10:30 FOLLOW-UP ceftriaxone Allergy Upset Verified 08/07/21 10:30 Stomach diatrizoate meglumine Allergy Hives Verified 08/07/21 10:30 hydrocodone Allergy Upset Verified 08/07/21 10:30 Stomach Iodinated Contrast Media [CT] Allergy Hives Verified 08/07/21 10:30 iodine Allergy Hives Verified 08/07/21 10:30 rosuvastatin Allergy NEEDS Verified 08/07/21 10:30 FOLLOW-UP Family History Father CAD (coronary artery disease) Mother CAD (coronary artery disease) Surgical History (Updated 08/07/21 @ 13:[address] Evan Deleon DO) Hx of CABG S/P IVC filter Stented coronary artery Social History Smoking Status: Former smoker substance use type: does not use ROS ROS ED Constitutional Constitutional ED: Denies chills or weight loss Eyes Eyes: Denies change in vision or diplopia ENT ENT ED: Denies ear pain, rhinorrhea or sore throat Cardiovascular Cardiovascular: Denies chest pain, orthopnea, palpitations or racing heartbeat Respiratory/Chest Respiratory/Chest: Denies cough, dyspnea or orthopnea Gastrointestinal Gastrointestinal: Reports abdominal pain and nausea; Denies diarrhea or vomiting Genitourinary Genitourinary ED: Denies dysuria, hematuria or urinary frequency Musculoskeletal Musculoskeletal: Reports back pain; Denies arthralgias or myalgias Integumentary Denies abscess or rash Neurologic Neurologic: Denies headache(s) or weakness Psychiatric Psychiatric: Denies anxiety, depression, suicidal ideation or suicidal thoughts Endocrine Endocrinology: Denies polydipsia, polyphagia or polyuria Allergic/Immunologic Allergic/Immunologic ED: Denies mouth swelling, tongue swelling or urticaria EXAM Physical Exam Narrative Exam Narrative: Patient appears in pain writhing on the bed Const Vital Signs: 08/07/21 10:26 08/07/21 10:31 08/07/21 10:51 Temperature 95.9 F L Temperature Source Temporal Pulse Rate 90 81 Respiratory Rate 17 32 H Respiratory Effort Normal Non-Labored Respiratory Pattern Normal Blood Pressure 126/107 H Blood Pressure Mean 113 Pulse Ox 100 Oxygen Delivery Method Non-Rebreather Room Air Oxygen Flow Rate (L/min) 08/07/21 11:17 08/07/21 11:35 08/07/21 12:08 Temperature Temperature Source Pulse Rate 74 98 67 Respiratory Rate 21 H 18 18 Respiratory Effort Respiratory Pattern Blood Pressure 120/56 L 88/46 L 127/59 H Blood Pressure Mean 77 60 81 Pulse Ox 100 97 100 Oxygen Delivery Method Nasal Cannula Room Air Room Air Oxygen Flow Rate (L/min) 2 08/07/21 12:53 08/07/21 13:12 Temperature Temperature Source Pulse Rate 69 77 Respiratory Rate 16 20 H Respiratory Effort Respiratory Pattern Blood Pressure 117/55 L 125/51 H Blood Pressure Mean 75 75 Pulse Ox 100 99 Oxygen Delivery Method Nasal Cannula Nasal Cannula Oxygen Flow Rate (L/min) 2 2 Positive well nourished, well developed and obese General Appearance ED: well developed Nutritional Appearance: obese HEENT Reports normocephalic, head/scalp atraumatic and moist mucous membranes Eyes PERRL and EOMs intact bilaterally Neck no lymphadenopathy, supple and no JVD Resp normal respiratory effort and clear to auscultation bilaterally Cardio regular rate, regular rhythm and no murmurs GI Palpation: soft and tender other (Diffusely tender to palpation) Back/Spine no CVA tenderness and normal ROM Extremity Extremity Narrative: Bilateral legs proximally show some mottling. The feet appear purpleish and cold. Neuro oriented x3 and CN's II-XII intact bilaterally Sensorium / Orientation: alert Motor Exam: strength 5/5 throughout Psych mental status grossly normal Mood & Affect: Negative for depressed or tearful Skin no wounds Skin Narrative: There is mottling of the abdomen. MDM MDM MDM Narrative Medical decision making narrative: We were able to establish IV access. Patient received IV fluids because of his hypotension he received fentanyl and Zofran. I attempted a bedside ultrasound but due to body habitus was unable to obtain a confident ultrasound of the aorta. With sudden onset of back pain syncope and the skin exam concerned about aneurysm versus dissection. Patient was taken to CT given 125 Solu-Medrol due to contrast allergy. This did not demonstrate any aortic catastrophe. Was noted that the patient had a CT about 1 month ago comparing that one to this 1 demonstrates that the IVC today appears more dilated inferior to the filter and more compressed above it. His lactic acid is elevated at 6.2 with a white count of 15. Creatinine 1.65. Normal coags. I contacted [facility] where the patient has been seen before and where he would like to be transferred but they are not excepting transfers. I contacted other [facility] and patient has been accepted to [facility]. Patient will be started on a heparin drip. Lab Data Attestation: I reviewed the patient's lab results. Labs: Laboratory Results - last 24 hr 08/07/21 08/07/21 08/07/21 10:35 10:35 10:35 WBC 15.0 H Corrected WBC RBC 4.64 Hgb 10.3 L Hct 37.0 L MCV 79.7 L MCH 22.2 L MCHC 27.8 L RDW Std Deviation 61.1 H RDW Coeff of Otto 21.2 H Plt Count 481 H MPV 9.8 Immature Gran % (Auto) 0.500 Neut % (Auto) 59.9 Lymph % (Auto) 28.8 [place] % (Auto) 8.9 Eos % (Auto) 1.5 Baso % (Auto) 0.4 Absolute Neuts (auto) 9.0 H Absolute Lymphs (auto) 4.32 Total Counted Neutrophils % (Manual) Band Neutrophils % Lymphocytes % (Manual) Monocytes % (Manual) Eosinophils % (Manual) Basophils % (Manual) Metamyelocytes % Myelocytes % Promyelocytes % Blast Cells % Plasma Cell % (Manual) Other Cells % Nucleated RBC % 0 Nucleated RBCs/100 WBC Differential Comment SCANNED Diff Path Review Hypersegmented Neuts Atypical Lymphocytes Reactive Lymphocytes Smudge Cells Toxic Granulation Toxic Vacuolation Dohle Bodies Becky Rods Platelet Estimate Plt Morphology Comment RBC Morphology Polychromasia Hypochromasia Poikilocytosis Basophilic Stippling Anisocytosis 2+ Microcytosis 1+ Macrocytosis 1+ Spherocytes Sickle Cells Target Cells Tear Drop Cells Ovalocytes Stomatocytes Muro-Niota Bodies [place] Cells Bite Cells Crenated Cell Acanthocytes (Spur) Rouleaux Schistocytes PT 14.4 INR 1.2 APTT 25.5 Sodium 137 Potassium 3.4 L Chloride 104 Carbon Dioxide 18.0 L Anion Gap 15 BUN 18 Creatinine 1.65 H Estim Creat Clear Calc 42.40 Est GFR (MDRD) Af Amer 53 L Est GFR (MDRD) Non-Af 44 L BUN/Creatinine Ratio 10.9 Glucose 273 H Lactic Acid Calcium 9.2 Total Bilirubin 0.50 AST 33 ALT 74 H Alkaline Phosphatase 57 Troponin I High Sens 10 Total Protein 8.5 H Albumin 3.7 Globulin 4.8 H Albumin/Globulin Ratio 0.8 L Lipase 243 Blood Type Antibody Screen 08/07/21 08/07/21 08/07/21 11:00 11:00 11:00 WBC Cancelled Corrected WBC Cancelled RBC Cancelled Hgb Cancelled Hct Cancelled MCV Cancelled MCH Cancelled MCHC Cancelled RDW Std Deviation Cancelled RDW Coeff of Otto Cancelled Plt Count Cancelled MPV Cancelled Immature Gran % (Auto) Cancelled Neut % (Auto) Cancelled Lymph % (Auto) Cancelled [place] % (Auto) Cancelled Eos % (Auto) Cancelled Baso % (Auto) Cancelled Absolute Neuts (auto) Cancelled Absolute Lymphs (auto) Cancelled Total Counted Cancelled Neutrophils % (Manual) Cancelled Band Neutrophils % Cancelled Lymphocytes % (Manual) Cancelled Monocytes % (Manual) Cancelled Eosinophils % (Manual) Cancelled Basophils % (Manual) Cancelled Metamyelocytes % Cancelled Myelocytes % Cancelled Promyelocytes % Cancelled Blast Cells % Cancelled Plasma Cell % (Manual) Cancelled Other Cells % Cancelled Nucleated RBC % Cancelled Nucleated RBCs/100 WBC Cancelled Differential Comment Cancelled Diff Path Review Cancelled Hypersegmented Neuts Cancelled Atypical Lymphocytes Cancelled Reactive Lymphocytes Cancelled Smudge Cells Cancelled Toxic Granulation Cancelled Toxic Vacuolation Cancelled Dohle Bodies Cancelled Becky Rods Cancelled Platelet Estimate Cancelled Plt Morphology Comment Cancelled RBC Morphology Cancelled Polychromasia Cancelled Hypochromasia Cancelled Poikilocytosis Cancelled Basophilic Stippling Cancelled Anisocytosis Cancelled Microcytosis Cancelled Macrocytosis Cancelled Spherocytes Cancelled Sickle Cells Cancelled Target Cells Cancelled Tear Drop Cells Cancelled Ovalocytes Cancelled Stomatocytes Cancelled Muro-Niota Bodies Cancelled [place] Cells Cancelled Bite Cells Cancelled Crenated Cell Cancelled Acanthocytes (Spur) Cancelled Rouleaux Cancelled Schistocytes Cancelled PT Cancelled INR Cancelled APTT Cancelled Sodium Cancelled Potassium Cancelled Chloride Cancelled Carbon Dioxide Cancelled Anion Gap Cancelled BUN Cancelled Creatinine Cancelled Estim Creat Clear Calc Cancelled Est GFR (MDRD) Af Amer Cancelled Est GFR (MDRD) Non-Af Cancelled BUN/Creatinine Ratio Cancelled Glucose Cancelled Lactic Acid Calcium Cancelled Total Bilirubin Cancelled AST Cancelled ALT Cancelled Alkaline Phosphatase Cancelled Troponin I High Sens Cancelled Total Protein Cancelled Albumin Cancelled Globulin Cancelled Albumin/Globulin Ratio Cancelled Lipase Cancelled Blood Type Antibody Screen 08/07/21 08/07/21 08/07/21 11:00 11:00 12:02 WBC Corrected WBC RBC Hgb Hct MCV MCH MCHC RDW Std Deviation RDW Coeff of Otto Plt Count MPV Immature Gran % (Auto) Neut % (Auto) Lymph % (Auto) [place] % (Auto) Eos % (Auto) Baso % (Auto) Absolute Neuts (auto) Absolute Lymphs (auto) Total Counted Neutrophils % (Manual) Band Neutrophils % Lymphocytes % (Manual) Monocytes % (Manual) Eosinophils % (Manual) Basophils % (Manual) Metamyelocytes % Myelocytes % Promyelocytes % Blast Cells % Plasma Cell % (Manual) Other Cells % Nucleated RBC % Nucleated RBCs/100 WBC Differential Comment Diff Path Review Hypersegmented Neuts Atypical Lymphocytes Reactive Lymphocytes Smudge Cells Toxic Granulation Toxic Vacuolation Dohle Bodies Becky Rods Platelet Estimate Plt Morphology Comment RBC Morphology Polychromasia Hypochromasia Poikilocytosis Basophilic Stippling Anisocytosis Microcytosis Macrocytosis Spherocytes Sickle Cells Target Cells Tear Drop Cells Ovalocytes Stomatocytes Muro-Niota Bodies [place] Cells Bite Cells Crenated Cell Acanthocytes (Spur) Rouleaux Schistocytes PT INR APTT Sodium Potassium Chloride Carbon Dioxide Anion Gap BUN Creatinine Estim Creat Clear Calc Est GFR (MDRD) Af Amer Est GFR (MDRD) Non-Af BUN/Creatinine Ratio Glucose Lactic Acid Cancelled 6.2 H* Calcium Total Bilirubin AST ALT Alkaline Phosphatase Troponin I High Sens Total Protein Albumin Globulin Albumin/Globulin Ratio Lipase Blood Type O POSITIVE Antibody Screen NEGATIVE Radiography Diagnostic Testing: Radiology Impression Chest/Abdomen/Pelvis CT 08/07/21 10:45 IMPRESSION: No evidence of aortic dissection. IVC filter in place. The IVC is distended distal to the placement of the filter. Electronically Signed: Nithin Marti MD at 11:11 EDT , Service support , EKG Initial EKG: Attestation: I personally reviewed and interpreted this EKG as follows: Comments: Normal sinus rhythm with a ventricular rate of 91 bpm Critical Care Time Critical Care Time: Yes Critical care time (excluding procedures): 30-74 minutes (35 minutes), Including time spent:, Discussing w/Patient &/or Family/[employer], Discussing w/Consultants, Arranging Admission or Transfer and Performing Direct Patient Care at Bedside Discharge Plan Triage Chief Complaint: Alt LOC ED Provider: Evan Deleon Dx/Rx/DC Orders Clinical Impression: Syncope, Back pain, 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 Prescriptions: No Action pantoprazole [Protonix] 40 mg tablet,delayed release (DR/EC) 40 mg PO DAILY 30 Days Qty: 30 RF: 3 ferrous sulfate [Iron (ferrous sulfate)] 325 mg (65 mg iron) tablet 325 mg PO TID 30 Days Qty: 90 RF: 0 multivitamin Tablet 1 tab PO DAILY RF: 0 furosemide [Lasix] 40 mg Tablet 40 mg PO DAILY RF: 0 metoprolol succinate [Toprol XL] 100 mg Tablet Extended Release 24 Hr 100 mg PO Q12H RF: 0 isosorbide mononitrate 60 mg Tablet Extended Release 24 Hr 60 mg PO DAILY RF: 0 potassium chloride [Klor-Con] 20 mEq Packet 20 meq PO DAILY RF: 0 pravastatin 80 mg Tablet 80 mg PO QHS RF: 0 metformin 1,000 mg Tablet 1,000 mg PO BID RF: 0 nitroglycerin [Nitrostat] 0.4 mg Tablet, Sublingual 0.4 mg SUBLINGUAL Q5M PRN (Reason: Chest Pain) RF: 0 folic acid 800 mcg Tablet 0.8 mg PO BID RF: 0 Januvia 50 mg Tablet 50 mg PO DAILY RF: 0 cilostazol 50 mg Tablet 50 mg PO BID RF: 0 lisinopril 20 mg Tablet 10 mg PO DAILY Qty: 0 RF: 0 clopidogrel 75 mg Tablet 75 mg PO DAILY Qty: 0 RF: 0 warfarin 2 mg Tablet 7 mg PO MOFR Qty: 0 RF: 0 warfarin 2 mg Tablet 6 mg PO SUTUWETHSA Qty: 0 RF: 0 isosorbide mononitrate 30 mg tablet extended release 24 hr 30 mg PO DAILY Qty: 30 RF: 0 lisinopril 10 mg tablet 10 mg PO DAILY Qty: 30 RF: 0 famotidine 40 mg Tablet 40 mg PO DAILY RF: 0 Primary Care Provider: Oscar Castro Referrals: Oscar Castro MD [Primary Care Provider] - Disposition Disposition: Acute Care Hospital Discharge Location: [facility]
--- NOTE | 2021-08-07 13:13 | NURSING ---
CALLED [facility]. TALKED TO DR KATHRIN ORONA TALKING TO HIM
--- NOTE | 2021-08-07 13:19 | NURSING ---
1316 [facility] ETA 10 MIN
[2021-08-07] MEDS: Heparin Injection (Vial) 5,000 UNIT/ML VIAL 9500 UNIT IV (13:45)
[2021-08-07 16:24] LABS: Reflex Lactate? Y
== END 2021-08-07 13:57 | disposition short-term general hospital (02) ==
PROVIDERS: Emergency Provider Emergency Medicine; PCP Family Medicine
DX: R55 Syncope and collapse (principal); M54.5 Low back pain; I80.203 Phlebitis and thrombophlebitis of unspecified deep vessels of lower extremities, bilateral; I25.10 Atherosclerotic heart disease of native coronary artery without angina pectoris; I48.91 Unspecified atrial fibrillation; I11.0 Hypertensive heart disease with heart failure; I50.9 Heart failure, unspecified; E11.9 Type 2 diabetes mellitus without complications; E78.5 Hyperlipidemia, unspecified; G47.30 Sleep apnea, unspecified; Z79.01 Long term (current) use of anticoagulants; Z79.899 Other long term (current) drug therapy; Z87.891 Personal history of nicotine dependence
CPT/HCPCS: 36415; 71260; 74177; 80053; 83605; 83690; 84484; 85025; 85610; 85730; 86850; 86900; 86901; 87426; 93005; 96374; 96375; 96376; 99285; J7030; Q9967; A4216; J2405

== ENCOUNTER → 2021-08-14 16:13 | Outpatient (CLI) | payer MEDICARE, OTHER, SELFPAY ==
[2021-08-14 17:39] LABS: Absolute Lymphocyte Count 2.24 X10^3/uL (0.83-4.51); Absolute Neutrophil Count 4.6 X10^3/uL (2.0-7.7); Basophil# 0.01 X10^3/uL; Basophil% 0.1 % (0-1); Eosinophil# 0.19 X10^3/uL; Eosinophils% 2.4 % (0-5); Hematocrit 33.3 % (40-54); Hemoglobin 9.4 g/dL (13.0-16.5); Lymphocyte # 2.24 X10^3/ul (0.83-4.51); Lymphocyte % 27.9 % (19-41); Mean Corp Hgb Conc 28.2 g/dL (32-36); Mean Corpuscular Hgb 21.3 pg (27.0-32.0); Mean Corpuscular Volume 75.3 fL (80-94); Mean Platelet Vol. 10.2 fl (6.2-12.0); Monocyte# 0.92 X10^3/uL; Monocyte% 11.4 % (0-10); NRBC Flagged by Analyzer 0 % (0-5); Neutrophil # 4.64 X10^3/uL (2.7-7.7); Neutrophil % 57.7 % (47-70); POSITIVE MORPHOLOGY YES; Platelet Count 285 K/mm3 (150-450); RBC Distribution Width CV 20.3 % (11.6-14.6); RBC Distribution Width SD 55.3 fl (35.1-43.9); Red Blood Count 4.42 M/mm3 (4.6-6.2)
[2021-08-14 17:43] LABS: Differential Indicated SCAN CRITERIA MET
[2021-08-14 18:01] LABS: Vitamin B12 522 pg/mL (211-911)
[2021-08-14 19:12] LABS: ALB/GLOB Ratio 0.7 RATIO (0.9-2.4); AST(SGOT) 17 U/L (15-37); Alanine Aminotransfer ALT/SGPT 45 U/L (16-61); Albumin, Serum 2.9 g/dL (3.2-5.0); Alkaline Phosphatase 49 U/L (45-117); Anion Gap 12 (5-15); BUN 12 mg/dL (7-18); Chloride 101 mmol/L (98-107); Creatinine, Serum 1.09 mg/dL (0.70-1.30); EST Glomerular Filtration Rate 71 mL/min (>60); Est Glom Filt Rate - Afr Amer 86 mL/min (>60); Ferritin 30 ng/mL (26-388); Glucose 150 mg/dL (74-106); Iron 19 ug/dL (65-175); Iron Binding Capacity,Total 394 ug/dL (250-450); Magnesium 1.7 mg/dL (1.6-2.6); Potassium 3.6 mmol/L (3.5-5.1); Protein, Total 6.9 g/dL (6.4-8.2); Sodium Level 137 mmol/L (136-145)
== END ==
PROVIDERS: PCP Family Medicine; Visit Provider Family Medicine
DX: D64.9 Anemia, unspecified (principal); R19.7 Diarrhea, unspecified
CPT/HCPCS: 36415; 80053; 82607; 82728; 82746; 83540; 83550; 83735; 85025

== ENCOUNTER → 2021-08-31 13:29 | Outpatient (CLI) | payer MEDICARE, OTHER, SELFPAY | PROVIDERS: PCP Family Medicine; Referring Provider Family Medicine; Visit Provider Family Medicine | DX: R19.7 Diarrhea, unspecified (principal) | CPT/HCPCS: 87493; 87506 ==

== ENCOUNTER → 2021-09-07 14:03 | Outpatient (CLI) | payer MEDICARE, OTHER, SELFPAY ==
[2021-09-07 15:46] LABS: Absolute Lymphocyte Count 4.08 X10^3/uL (0.83-4.51); Absolute Neutrophil Count 4.2 X10^3/uL (2.0-7.7); Basophil# 0.04 X10^3/uL; Basophil% 0.4 % (0-1); Eosinophils% 3.2 % (0-5); Hematocrit 32.6 % (40-54); Hemoglobin 9.3 g/dL (13.0-16.5); Lymphocyte # 4.08 X10^3/ul (0.83-4.51); Lymphocyte % 42.9 % (19-41); Mean Corp Hgb Conc 28.5 g/dL (32-36); Mean Corpuscular Hgb 20.9 pg (27.0-32.0); Mean Corpuscular Volume 73.3 fL (80-94); Mean Platelet Vol. 9.3 fl (6.2-12.0); Monocyte# 0.91 X10^3/uL; Monocyte% 9.6 % (0-10); NRBC Flagged by Analyzer 0 % (0-5); Neutrophil # 4.16 X10^3/uL (2.7-7.7); Neutrophil % 43.6 % (47-70); Platelet Count 442 K/mm3 (150-450); RBC Distribution Width CV 18.2 % (11.6-14.6); Red Blood Count 4.45 M/mm3 (4.6-6.2); White Blood Count 9.5 K/mm3 (4.4-11.0)
[2021-09-07 16:20] LABS: ALB/GLOB Ratio 0.8 RATIO (0.9-2.4); AST(SGOT) 24 U/L (15-37); Alanine Aminotransfer ALT/SGPT 47 U/L (16-61); Albumin, Serum 3.4 g/dL (3.2-5.0); Alkaline Phosphatase 61 U/L (45-117); Anion Gap 8 (5-15); BUN 16 mg/dL (7-18); BUN/Creat Ratio 14.4 RATIO (10-20); Calcium,Total 8.9 mg/dL (8.5-10.1); Chloride 103 mmol/L (98-107); Cholesterol 104 mg/dL (200); Creatinine, Serum 1.11 mg/dL (0.70-1.30); EST Glomerular Filtration Rate 69 mL/min (>60); Est Glom Filt Rate - Afr Amer 84 mL/min (>60); Ferritin 18 ng/mL (26-388); Globulin 4.2 g/dL (2.2-4.2); Glucose 110 mg/dL (74-106); High Density Lipoprotein 26 mg/dL; Iron 44 ug/dL (65-175); Iron Binding Capacity,Total 425 ug/dL (250-450); Magnesium 1.7 mg/dL (1.6-2.6); Potassium 4.1 mmol/L (3.5-5.1); Protein, Total 7.6 g/dL (6.4-8.2); Sodium Level 136 mmol/L (136-145); Triglycerides 249 mg/dL; Very Low Density Lipoprotein 50 mg/dL (5-40)
== END ==
PROVIDERS: PCP Family Medicine; Referring Provider Family Medicine; Visit Provider Family Medicine
DX: D50.9 Iron deficiency anemia, unspecified (principal); E11.59 Type 2 diabetes mellitus with other circulatory complications
CPT/HCPCS: 36415; 80053; 80061; 82728; 83036; 83540; 83550; 83735; 85025

== ENCOUNTER 2021-12-14 13:49 | Outpatient (CLI) | payer MEDICARE, OTHER, SELFPAY ==
[2021-12-14 14:56] LABS: Absolute Lymphocyte Count 2.79 X10^3/uL (0.83-4.51); Absolute Neutrophil Count 3.5 X10^3/uL (2.0-7.7); Basophil# 0.05 X10^3/uL; Basophil% 0.7 % (0-1); Eosinophils% 2.7 % (0-5); Hemoglobin 8.8 g/dL (13.0-16.5); Lymphocyte # 2.79 X10^3/ul (0.83-4.51); Lymphocyte % 38.1 % (19-41); Mean Corp Hgb Conc 29.3 g/dL (32-36); Mean Corpuscular Hgb 23.4 pg (27.0-32.0); Mean Corpuscular Volume 79.8 fL (80-94); Mean Platelet Vol. 9.1 fl (6.2-12.0); Monocyte# 0.72 X10^3/uL; Monocyte% 9.8 % (0-10); NRBC Flagged by Analyzer 0 % (0-5); Neutrophil # 3.54 X10^3/uL (2.7-7.7); Neutrophil % 48.3 % (47-70); Platelet Count 477 K/mm3 (150-450); RBC Distribution Width CV 19.6 % (11.6-14.6); RBC Distribution Width SD 57.2 fl (35.1-43.9); Red Blood Count 3.76 M/mm3 (4.6-6.2); White Blood Count 7.3 K/mm3 (4.4-11.0)
[2021-12-14 15:36] LABS: AST(SGOT) 25 U/L (15-37); Alanine Aminotransfer ALT/SGPT 39 U/L (16-61); Albumin, Serum 3.5 g/dL (3.2-5.0); Alkaline Phosphatase 62 U/L (45-117); Anion Gap 9 (5-15); BUN 14 mg/dL (7-18); BUN/Creat Ratio 14.1 RATIO (10-20); Chloride 105 mmol/L (98-107); Cholesterol 98 mg/dL (200); Creatinine, Serum 0.99 mg/dL (0.70-1.30); EST Glomerular Filtration Rate 79 mL/min (>60); Est Glom Filt Rate - Afr Amer 95 mL/min (>60); Ferritin 18 ng/mL (26-388); Globulin 3.5 g/dL (2.2-4.2); Glucose 114 mg/dL (74-106); High Density Lipoprotein 25 mg/dL; Iron 27 ug/dL (65-175); Iron Binding Capacity,Total 386 ug/dL (250-450); Magnesium 1.9 mg/dL (1.6-2.6); Sodium Level 138 mmol/L (136-145); Triglycerides 207 mg/dL; Very Low Density Lipoprotein 41 mg/dL (5-40)
== END 2021-12-14 23:59 | disposition short-term general hospital (02) ==
LOC: MFPLAB 13:56
PROVIDERS: PCP Family Medicine; Referring Provider Family Medicine; Visit Provider Family Medicine
DX: I25.10 Atherosclerotic heart disease of native coronary artery without angina pectoris (principal); E11.69 Type 2 diabetes mellitus with other specified complication; I48.92 Unspecified atrial flutter; D50.0 Iron deficiency anemia secondary to blood loss (chronic)
CPT/HCPCS: 36415; 80053; 80061; 82728; 83036; 83540; 83550; 83735; 85025